=== PATIENT | male | born 1940 | race Caucasian/White ===

== ENCOUNTER 2019-02-06 16:34 | Emergency (ER) | payer MEDICARE, OTHER ==
--- NOTE | 2019-02-06 16:56 | ED ---
Psychiatric Complaint - HPI Summary HPI Summary: This patient is a 78 year old male accompanied by his presenting to [facility] from [facility] with a psychosocial complaint. His states he was upset, agitated, and combative with halfway staff and threw water at the director's face at the halfway and they could not get his agitation under control. Yesterday he had taken the hand of another resident and slammed it on the desk. She states he was suffering from paranoia. He states that was a regrettable fit of rage. His medication dosages have been changed frequently recently. The patient was given Seroquel at the halfway as a morning dose , which is a new dosage. His Buspar was recently increased. He takes Ativan. Medications reviewed. Allergies noted. Acetaminophen [Tylenol Extra Strength] 1,000 mg PO Q4HR PRN 01/27/19 [History Confirmed 01/27/19] Aspirin EC TAB* [Ecotrin EC Low Dose 81 MG*] 81 mg PO DAILY 01/27/19 [History Confirmed 01/27/19] Atorvastatin* [Lipitor*] 80 mg PO DAILY 01/27/19 [History Confirmed 01/27/19] Azelastine 0.1% Nasal (NF) [Astepro 0.1% Nasal (NF)] 1 spray BOTH NARES DAILY [History Confirmed 01/27/19] Cholecalciferol (Vitamin D3) [Vitamin D3] 1,000 unit PO DAILY 01/27/19 [History Confirmed 01/27/19] Citalopram TAB* [CeleXA TAB*] 40 mg PO DAILY 01/27/19 [History Confirmed ] Galantamine (NF) 8 mg PO BID 01/27/19 [History Confirmed 01/27/19] Ketotifen Fumarate [Allergy Eye Drops] 5 ml BOTH EYES DAILY 01/27/19 [History Confirmed 01/27/19] LORazepam TAB(*) [Ativan 0.5 MG TAB (*)] 0.25 mg PO Q4HR PRN 01/27/19 [History Confirmed 01/27/19] Memantine TAB* [Namenda TAB*] 5 mg PO BID 01/27/19 [History Confirmed 01/27/19] Metoprolol Succinate XL TAB* [Toprol XL TAB*] 25 mg PO DAILY 01/27/19 [History Confirmed 01/27/19] Polyethylene Glycol 3350* [Miralax*] 17 gm PO EVERY OTHER DAY 01/27/19 [History Confirmed 01/27/19] QUEtiapine TAB* [Seroquel 25 MG TAB*] 25 mg PO BEDTIME #30 tab 01/27/19 [Rx] Ramipril CAP* [Altace CAP*] 20 mg PO DAILY 01/27/19 [History Confirmed 01/27/19] Tamsulosin CAP* [Flomax CAP*] 0.8 mg PO DAILY 01/27/19 [History Confirmed ] amLODIPine TAB* [Norvasc 5 mg TAB*] 2.5 mg PO DAILY 01/27/19 [History Confirmed 01/27/19] amLODIPine TAB* [Norvasc 5 mg TAB*] 5 mg PO DAILY 01/27/19 [History Confirmed ] busPIRone TAB* [Buspar TAB*] 10 mg PO BID 01/27/19 [History Confirmed 01/27/19] - History Of Current Complaint Time Seen by Provider: 02/06/19 16:49 Hx Obtained From: Patient Onset/Duration: Lasting Days Timing: Intermittent Episode Lasting Character: Angry Associated Signs And Symptoms: Positive: Paranoid Behavior - Allergies/Home Medications Allergies/Adverse Reactions: Allergies Allergy/AdvReac Type Severity Reaction Status Date / Time morphine Allergy Mild Hallucinati Verified 01/28/19 10:06 ons SEASONAL ALLERGIES Allergy Eyes Uncoded 02/22/15 07:53 Itchy/Swollen/Red/Watery PMH/Surg Hx/FS Hx/Imm Hx Cardiovascular History: Reports: Hx Coronary Artery Disease - ON MED, Hx Hypertension - medication controlled Denies: Hx Pacemaker/ICD Comment Only: Other Cardiovascular Problems/Disorders - STENT IMPLANTED 1997 Respiratory History: Reports: Other Respiratory Problems/Disorders - PNEUMONIA ~ 06/09/14 Musculoskeletal History: Reports: Hx Arthritis - MILD-SHOULDERS/LOWER BACK Sensory History: Reports: Hx Cataracts, Hx Contacts or Glasses - GLASSES Denies: Hx Hearing Aid Opthamlomology History: Reports: Hx Cataracts, Hx Contacts or Glasses - GLASSES Psychiatric History: Denies: Hx Panic Disorder - Surgical History Surgery Procedure, Year, and Place: CARDIAC STENT. 05/10 INGUINAL HERNIA REPAIR. 05/11 MEDIAL MENISCUS REPAIR [facility]. 11/16 [facility] SURGERY [facility]. LT FEMORAL ENDARTORECTOMY Hx Anesthesia Reactions: No Infectious Disease History: Denies: Traveled Outside the [place] in Last 30 Days - Family History Known Family History: Positive: Non-Contributory - Social History Alcohol Use: None Alcohol Amount: 2-3 DRINKS DAILY Hx Substance Use: No Substance Use Type: Reports: None Hx Tobacco Use: No Smoking Status (MU): Never Smoked Tobacco Amount Used/How Often: 1/2 PPD Length of Time of Smoking/Using Tobacco: 15 YRS Have You Smoked in the Last Year: No Review of Systems Negative: Fever Positive: Other - Episodes of rage, paranoia All Other Systems Reviewed And Are Negative: Yes Physical Exam - Summary Physical Exam Summary: Constitutional: Well-developed, Well-nourished, Alert. (-) Distressed Skin: Warm, Dry HENT: Normocephalic; Atraumatic Eyes: Conjunctiva normal Neck: Musculoskeletal ROM normal neck. (-) JVD, (-) Stridor, (-) Tracheal deviation Cardio: Rhythm regular, rate normal, Heart sounds normal; Intact distal pulses; The pedal pulses are 2+ and symmetric. Radial pulses are 2+ and symmetric. (-) Murmur Pulmonary/Chest wall: Effort normal. (-) Respiratory distress, (-) Wheezes, (-) Rales Abd: Soft, (-) tenderness, (-) Distension, (-) Guarding, (-) Rebound Musculoskeletal: (-) Edema Lymph: (-) Cervical adenopathy Neuro: Rambling speech, incomprehensible. Psych: Mood and affect Normal Triage Information Reviewed: Yes Vital Signs Reviewed: Yes Course/Dx - Course Course Of Treatment: Patient is here with periodic agitation. Patient has end- stage dementia and lives at memory care unit at [facility]. Patient was seen here 10 days ago for similar episode where he was started on Seroquel. Patient's Seroquel was increased 2 days ago to 25 mg twice a day. Per patient 's at bedside, yesterday at lunch patient took his Seroquel and was very sleepy. It is unsure whether patient is taking his medications. Today, patient was agitated but was calm upon arrival here. Patient did not need any lab tests here. Patient's primary care doctor Dr. Izaguirre was called and made aware of the circumstances. He recommended continuing the 25 mg of Seroquel twice a day as recently started this. Dr. Howe will call [facility] early this week to see if the meds are working. Patient and were comfortable with this plan. [facility] [place] received report about this and was also comfortable accepting the patient back. - Differential Dx/Clinical Impression Provider Diagnosis: Agitation, Dementia - Physician Notifications Discussed Care Of Patient With: Blayne Izaguirre - Primary Care Provider Time Discussed With Above Provider: 17:17 - Will see if added morning dose of Seroquel is working and will contact the halfway to see if they should further increase the dose, with the goal of behaving well in the halfway. Discharge ED - Sign-Out/Discharge Documenting (check all that apply): Patient Departure - Discharge Patient Received Moderate/Deep Sedation with Procedure: No - Discharge Plan Condition: Stable Disposition: HOME Patient Education Materials: Dementia (ED) Referrals: Blayne Izaguirre MD [Primary Care Provider] - Additional Instructions: Your primary care provider Dr. Izaguirre will communicate with the halfway the best dosages of Seroquel for you. Return to ED with any new or worsening symptoms. - Billing Disposition and Condition Condition: STABLE Disposition: Home - Attestation Statements Document Initiated by Cathie: Yes Documenting Cathie: Kameron Leal Provider For Whom Cathie is Documenting (Include Credential): Gerhard Isaac MD Scribe Attestation: Kameron Walsh, scribed for Gerhard Isaac MD on 02/06/19 at 1827. Scribe Documentation Reviewed: Yes Provider Attestation: The documentation as recorded by the Kameron west accurately reflects the service I personally performed and the decisions made by , Gerhard Isaac MD Status of Scribe Document: Viewed
[2019-02-06 18:08] VITALS: BP 143/68
== END 2019-02-06 18:07 | disposition home or self-care (01) ==
LOC: ED 16:34
DX: F03.90 Unspecified dementia, unspecified severity, without behavioral disturbance, psychotic disturbance, mood disturbance, and anxiety (principal); R45.1 Restlessness and agitation; I25.10 Atherosclerotic heart disease of native coronary artery without angina pectoris; I10 Essential (primary) hypertension; Z87.891 Personal history of nicotine dependence; Z79.82 Long term (current) use of aspirin; Z79.899 Other long term (current) drug therapy; Z88.5 Allergy status to narcotic agent
CPT/HCPCS: 99282

== ENCOUNTER 2019-02-15 23:28 | Emergency (ER) | payer MEDICARE, OTHER ==
--- NOTE | 2019-02-16 00:17 | ED ---
Adult Trauma - HPI Summary HPI Summary: Patient from residential complains of unwitnessed fall, found on the ground after unknown period of time with contusion to posterior left side head, bruise left arm. Unknown LOC. Per EMS increased number of falls past couple days. Family states patient Seroquel dose has recently been increased. Patient has history of Alzheimer's and agitation and aggression, cannot provide history of present illness. No anti-coag. Medical history is Alzheimer's, HTN, CAD. - History of Current Complaint Chief Complaint: EDHeadInjury Stated Complaint: FALL/AMS PER EMS Time Seen by Provider: 02/16/19 00:05 Hx Obtained From: Family/Assessment Specialist, EMS Hx From Patient Unobtainable Due To: Dementia Mechanism of Injury: Fall Current Severity: None Pain Intensity: 0 Pain Scale Used: 0-10 Numeric Location: Head, Extremities Associated Signs & Symptoms: Positive: Negative - Allergy/Home Medications Allergies/Adverse Reactions: Allergies Allergy/AdvReac Type Severity Reaction Status Date / Time morphine Allergy Mild Hallucinati Verified 02/16/19 00:10 ons SEASONAL ALLERGIES Allergy Eyes Uncoded 02/22/15 07:53 Itchy/Swollen/Red/Watery Home Medications: Home Medications QUEtiapine TAB* [Seroquel 25 MG TAB*] 25 mg PO BID 02/16/19 [History Confirmed 02/16/19] PMH/Surg Hx/FS Hx/Imm Hx Endocrine/Hematology History: Denies: Hx Anticoagulant Therapy Cardiovascular History: Reports: Hx Coronary Artery Disease - ON MED, Hx Hypertension - medication controlled Denies: Hx Pacemaker/ICD Comment Only: Other Cardiovascular Problems/Disorders - STENT IMPLANTED 1997 Respiratory History: Reports: Other Respiratory Problems/Disorders - PNEUMONIA ~ 06/09/14 Musculoskeletal History: Reports: Hx Arthritis - MILD-SHOULDERS/LOWER BACK Sensory History: Reports: Hx Cataracts, Hx Contacts or Glasses - GLASSES Denies: Hx Hearing Aid Opthamlomology History: Reports: Hx Cataracts, Hx Contacts or Glasses - GLASSES Psychiatric History: Denies: Hx Panic Disorder - Surgical History Surgery Procedure, Year, and Place: CARDIAC STENT. 05/10 INGUINAL HERNIA REPAIR. 05/11 MEDIAL MENISCUS REPAIR [facility]. 11/16 [facility] SURGERY [facility]. LT FEMORAL ENDARTORECTOMY Hx Anesthesia Reactions: No Infectious Disease History: No Infectious Disease History: Denies: Traveled Outside the [place] in Last 30 Days - Family History Known Family History: Positive: Non-Contributory - Social History Alcohol Use: None Alcohol Amount: 2-3 DRINKS DAILY Hx Substance Use: No Substance Use Type: Reports: None Hx Tobacco Use: No Smoking Status (MU): Never Smoked Tobacco Amount Used/How Often: 1/2 PPD Length of Time of Smoking/Using Tobacco: 15 YRS Have You Smoked in the Last Year: No Review of Systems Constitutional: Negative Eyes: Negative ENT: Negative Cardiovascular: Negative Respiratory: Negative Gastrointestinal: Negative Genitourinary: Negative Musculoskeletal: Negative Skin: Other Neurological: Negative Psychological: Normal All Other Systems Reviewed And Are Negative: Yes Physical Exam - Summary Physical Exam Summary: Patient unable to perform neuro exam due to dementia and agitation. Patient moving all 4 extremities freely without indication of pain. Full range of motion of jaw and neck. No pain with palpation of head, face, neck, back, chest wall, abdomen. No oral trauma noted. Small hematoma to left posterior head with no evidence of wound. No other ecchymosis, erythema, deformity, swelling noted on physical exam. Triage Information Reviewed: Yes Vital Signs On Initial Exam: Initial Vitals Temp Pulse Resp BP Pulse Ox 97.8 F 76 18 124/66 100 02/15/19 23:56 02/15/19 23:56 02/15/19 23:56 02/15/19 23:56 02/15/19 23:56 Vital Signs Reviewed: Yes Appearance: Positive: Well-Appearing Skin: Positive: Warm Head/Face: Positive: Normal Head/Face Inspection Eyes: Positive: Normal ENT: Positive: Normal ENT inspection Dental: Negative: Dental Fracture @, Bleeding Neck: Positive: Supple Respiratory/Lung Sounds: Positive: Clear to Auscultation Cardiovascular: Positive: Normal Abdomen Description: Positive: Nontender Musculoskeletal: Positive: Normal Psychiatric: Positive: Patient Uncooperative for Exam AVPU Assessment: Alert - [place]aye Coma Scale Best Eye Response: 4 - Spontaneous Diagnostics - Vital Signs Vital Signs Temp Pulse Resp BP Pulse Ox 02/15/19 23:56 97.8 F 76 18 124/66 100 - Laboratory Result Diagrams: 02/16/19 00:27 02/16/19 00:27 Lab Statement: Any lab studies that have been ordered have been reviewed, and results considered in the medical decision making process. Adult Trauma Course/Dx - Course Course Of Treatment: Patient from residential complains of unwitnessed fall, found on the ground after unknown period of time with contusion to posterior left side head, bruise left arm. Unknown LOC. Per EMS increased number of falls past couple days. Family states patient Seroquel dose has recently been increased. Patient has history of Alzheimer's and agitation and aggression, cannot provide history of present illness. No anti-coag. Medical history is Alzheimer's, HTN, CAD. Patient required sedation in order to facilitate evaluation. B52 after initial Versed 5 mg IM. Vital signs within normal limits. WBC 11.2. BUN 30. BUN/creatinine ratio 37.4. Total CK 241. EKG sinus rhythm, normal [place], similar to prior. CT brain negative - Diagnoses Provider Diagnoses: Fall, Hematoma, Agitation Discharge ED - Sign-Out/Discharge Documenting (check all that apply): Sign-Out Patient Signing out patient TO: Lily Tao - Discharge Plan Condition: Stable Disposition: [facility] Referrals: Blayne Izaguirre MD [Primary Care Provider] - Additional Instructions: Consider decreasing Seroquel dose due to increasing falls recently. Follow-up with primary care. - Billing Disposition and Condition Condition: STABLE Disposition: [facility]
[2019-02-16 00:32] LABS: ABS Basophils 0.1 10^3/ul (0-0.2); ABS Eosinophils 0.2 10^3/ul (0-0.6); ABS Lymphocytes 1.1 10^3/ul (1.0-4.8); ABS Monocytes 0.7 10^3/ul (0-0.8); ABS Neutrophils 9.1 10^3/ul (1.5-7.7); Eosinophil % 1.8 %; Hematocrit 38 % (42-52); Mean Corpuscular HGB Conc 34 g/dL (31-36); Mean Corpuscular Hemoglobin 31 pg (27-31); Mean Corpuscular Volume 90 fL (80-94); Mean Platelet Volume 8.6 fL (7.4-10.4); Platelet Count 252 10^3/uL (150-450); Red Blood Count 4.19 10^6 /uL (4.18-5.48); Red Cell Distribution Width 14 % (10-15); White Blood Count 11.2 10^3/uL (3.5-10.8)
[2019-02-16] MEDS ORDERED: LORazepam INJ* 2 MG/ML 1 ML VIAL IM ONE (00:35)
[2019-02-16] MEDS ORDERED: diPHENhydraMINE IV* 50 MG/ML 1 ml VIAL (BENADRYL) IM ONE (00:35)
[2019-02-16] MEDS ORDERED: Lorazepam PYXIS KEY ONE (00:39)
[2019-02-16 00:49] LABS: Albumin 4.2 g/dL (3.2-5.2); Albumin/Globulin Ratio 2.1 (1-3); BUN/Creatinine Ratio 37.4 (8-20); C Reactive Protein 1.03 mg/L (<8.01); Calcium 9.2 mg/dL (8.6-10.3); EGFR African American 80.7 (>60); EGFR Non-African American 66.7 (>60); Potassium 4.1 mmol/L (3.5-5.0); Total Bilirubin 0.9 mg/dL (0.2-1.0); Total Protein 6.2 g/dL (6.4-8.9)
[2019-02-16] MEDS ORDERED: Haloperidol INJ IV/IM* 5 MG/ML AMP IM ONE (01:28)
[2019-02-16 04:45] VITALS: BP 140/72
[2019-02-17] MEDS ORDERED: Haloperidol INJ IV/IM* 5 MG/ML AMP IV SLOW PU ONE (02:56)
== END 2019-02-16 05:17 ==
LOC: ED 23:28
DX: S00.93XA Contusion of unspecified part of head, initial encounter (principal); I10 Essential (primary) hypertension; I25.10 Atherosclerotic heart disease of native coronary artery without angina pectoris; G30.9 Alzheimer's disease, unspecified; W19.XXXA Unspecified fall, initial encounter; Y92.9 Unspecified place or not applicable; R45.1 Restlessness and agitation; Z79.899 Other long term (current) drug therapy
CPT/HCPCS: 36415; 70450; 80053; 82550; 84484; 85025; 86140; 87086; 93005; 96372; 99284; J1200; J1630; J2060

== ENCOUNTER 2019-02-16 10:43 | Inpatient (IN) | payer MEDICARE, OTHER ==
--- NOTE | 2019-02-16 11:18 | ED ---
Altered Mental Status - HPI Summary HPI Summary: LEVEL 5 CAVEAT - AMS This patient is a 78 year old M presenting to [facility] by EMS with a chief complaint of AMS since this morning. Per EMS, pt was seen in ED last night after hitting his head. Pt received 5 mg Haldol, 50 mg BENDRYL, and 2 mg Ativan. He was discharged and this morning the custodial reported he was acting psychotic and sent him to the ED. Pt has a PMHx of Alzheimers and agitation. Medications reviewed. Allergies noted - History Of Current Complaint Chief Complaint: EDAltMentalStatus Stated Complaint: ALTERED MENTAL STATUS PER EMS Time Seen by Provider: 02/16/19 10:46 Hx Obtained From: EMS Hx From Patient Unobtainable Due To: Altered Mental Status Onset/Duration: Still Present Timing: Constant Character: Agitation Aggravating Factor(s): Other - Medications Alleviating Factor(s): Unknown - Allergies/Home Medications Allergies/Adverse Reactions: Allergies Allergy/AdvReac Type Severity Reaction Status Date / Time morphine Allergy Mild Hallucinati Verified 02/16/19 00:10 ons SEASONAL ALLERGIES Allergy Eyes Uncoded 02/22/15 07:53 Itchy/Swollen/Red/Watery Home Medications: Home Medications QUEtiapine TAB* [Seroquel 25 MG TAB*] 50 mg PO BID 02/16/19 [History Confirmed 02/16/19] PMH/Surg Hx/FS Hx/Imm Hx Previously Healthy: No - LEVEL 5 CAVEAT - AMS Endocrine/Hematology History: Denies: Hx Anticoagulant Therapy Cardiovascular History: Reports: Hx Coronary Artery Disease - ON MED, Hx Hypertension - medication controlled Denies: Hx Pacemaker/ICD Comment Only: Other Cardiovascular Problems/Disorders - STENT IMPLANTED 1997 Respiratory History: Reports: Other Respiratory Problems/Disorders - PNEUMONIA ~ 06/09/14 Musculoskeletal History: Reports: Hx Arthritis - MILD-SHOULDERS/LOWER BACK Sensory History: Reports: Hx Cataracts, Hx Contacts or Glasses - GLASSES Denies: Hx Hearing Aid Opthamlomology History: Reports: Hx Cataracts, Hx Contacts or Glasses - GLASSES Psychiatric History: Denies: Hx Panic Disorder - Surgical History Surgery Procedure, Year, and Place: CARDIAC STENT. 05/10 INGUINAL HERNIA REPAIR. 05/11 MEDIAL MENISCUS REPAIR [facility]. 11/16 [facility] SURG[facility] [place]. LT FEMORAL ENDARTORECTOMY Hx Anesthesia Reactions: No Infectious Disease History: Denies: Traveled Outside the [place] in Last 30 Days - Family History Known Family History: Positive: Unknown - LEVEL 5 CAVEAT - AMS - Social History [facility]: [facility] Alcohol Use: None Alcohol Amount: 2-3 DRINKS DAILY Hx Substance Use: No Substance Use Type: Reports: None Hx Tobacco Use: No Smoking Status (MU): Never Smoked Tobacco Amount Used/How Often: 1/2 PPD Length of Time of Smoking/Using Tobacco: 15 YRS Have You Smoked in the Last Year: No - Additional Comments History Additional Comments: LEVEL 5 CAVEAT - AMS Review of Systems Positive: Other - AMS All Other Systems Reviewed And Are Negative: No - Comments Additional Review of Systems Comments: LEVEL 5 CAVEAT - AMS Physical Exam - Summary Physical Exam Summary: LEVEL 5 CAVEAT - AMS Constitutional: Well-developed, Well-nourished, (-) Distressed Skin: Warm, Dry HENT: Normocephalic; Atraumatic Eyes: Conjunctiva normal Neck: Musculoskeletal ROM normal neck. (-) JVD, (-) Stridor, (-) Tracheal deviation Cardio: Rhythm regular, rate normal, Heart sounds normal; Intact distal pulses; The pedal pulses are 2+ and symmetric. Radial pulses are 2+ and symmetric. (-) Murmur Pulmonary/Chest wall: Effort normal. (-) Respiratory distress, (-) Wheezes, (-) Rales Abd: Soft, (-) tenderness, (-) Distension, (-) Guarding, (-) Rebound Musculoskeletal: (-) Edema Lymph: (-) Cervical adenopathy Neuro: Eyes closed, not speaking but does move all 4 extremities when asked. Psych: Mood and affect Normal Triage Information Reviewed: Yes Vital Signs On Initial Exam: Initial Vital Signs Temp 99.8 F 02/16/19 11:09 Pulse 63 02/16/19 11:09 Resp 14 02/16/19 11:09 BP 110/56 02/16/19 11:09 Pulse Ox 94 02/16/19 11:09 Vital Signs Reviewed: Yes - [place] Coma Scale Best Eye Response: 2 - To Pain Best Motor Response: 6 - Obeys Commands Best Verbal Response: 1 - None Coma Scale Total: 9 Diagnostics - Laboratory Result Diagrams: 02/16/19 11:34 02/16/19 11:34 Lab Statement: Any lab studies that have been ordered have been reviewed, and results considered in the medical decision making process. - CT Brain CT CT Interpretation Completed By: Radiologist Summary of CT Findings: Brain CT reveals, per radiologist, IMPRESSION: NO ACUTE INTRACRANIAL PATHOLOGY. DIFFUSE INVOLUTIONAL CHANGE WITH CHRONIC SMALL VESSEL ISCHEMIC CHANGES. ED physician has reviewed this radiology report. - EKG 11:10 Cardiac Rate: NL - 62 bpm EKG Rhythm: Sinus Rhythm Summary of EKG Findings: An EKG at 11:10 reveals normal sinus rhythm 62 bpm, no STEMI. Re-Evaluation - Re-Evaluation First Eval Re-Evaluation Time: 12:10 Comment: Aware of troponin 0.07, recheck on pt. Altered Mental Statu Course/Dx - Course Course Of Treatment: Patient is here with altered mental status. Patient received 50 mg of Benadryl, 2 mg of Ativan, 5 mg of Haldol last night in the emergency department. Patient received Versed in the custodial as well. EMS. Upon arrival, patient was able to follow commands but was not answering questions or opening his eyes. Patient did metabolize all here with improvement in his mental status. Patient had negative repeat head CT for delayed intercurrent or hemorrhage. Patient did have a troponin of 0.07. Patient had serial troponins last night which showed increasing troponin. It is unsure what has a troponin leak as he is a normal EKG here. Patient was admitted to the hospital for further workup and monitoring. - Diagnoses Provider Diagnoses: Elevated troponin, Altered mental status, Dementia - Provider Notifications Discussed Care Of Patient With: Viky Power Time Discussed With Above Provider: 12:49 Instructed by Provider To: Other - Discussed case with Dr. Power, who accepts pt for admission. Discharge ED - Sign-Out/Discharge Documenting (check all that apply): Patient Departure - Admit Patient Received Moderate/Deep Sedation with Procedure: No - Discharge Plan Condition: Stable Disposition: ADMITTED TO [facility] Referrals: Blayne Izaguirre MD [Primary Care Provider] - - Billing Disposition and Condition Condition: STABLE Disposition: Admitted to [facility] - Attestation Statements Document Initiated by Scribe: Yes Documenting Scribe: Malina Gibson Provider For Whom Scribe is Documenting (Include Credential): Gerhard Isaac MD Scribe Attestation: Malina Walsh, scribed for Gerhard Isaac MD on 02/16/19 at 1301. Scribe Documentation Reviewed: Yes Provider Attestation: The documentation as recorded by the scribe, Malina Gibson accurately reflects the service I personally performed and the decisions made by me, Gerhard Isaac MD Status of Scribe Document: Viewed
[2019-02-16 11:44] LABS: ABS Basophils 0.1 10^3/ul (0-0.2); ABS Eosinophils 0.3 10^3/ul (0-0.6); ABS Monocytes 0.9 10^3/ul (0-0.8); ABS Neutrophils 8.2 10^3/ul (1.5-7.7); Eosinophil % 2.8 %; Hematocrit 38 % (42-52); Hemoglobin 13.1 g/dL (14.0-18.0); Lymphocyte % 9.3 %; Mean Corpuscular HGB Conc 35 g/dL (31-36); Mean Corpuscular Hemoglobin 31 pg (27-31); Mean Corpuscular Volume 89 fL (80-94); Mean Platelet Volume 8.5 fL (7.4-10.4); Platelet Count 254 10^3/uL (150-450); Red Blood Count 4.22 10^6 /uL (4.18-5.48); Red Cell Distribution Width 14 % (10-15); White Blood Count 10.5 10^3/uL (3.5-10.8)
[2019-02-16 11:57] LABS: INR 1.05 (0.82-1.09)
[2019-02-16 12:01] LABS: Albumin 3.8 g/dL (3.2-5.2); Albumin/Globulin Ratio 1.9 (1-3); BUN/Creatinine Ratio 39.3 (8-20); Calcium 8.7 mg/dL (8.6-10.3); EGFR African American 106.7 (>60); EGFR Non-African American 88.1 (>60); Potassium 3.9 mmol/L (3.5-5.0); Total Bilirubin 1.1 mg/dL (0.2-1.0); Total Protein 5.8 g/dL (6.4-8.9)
[2019-02-16 12:09] LABS: Troponin I 0.07 ng/mL (<0.04)
[2019-02-16] MEDS ORDERED: NS 0.9% 1000 ML** 1,000 ML IV SCH (14:15)
[2019-02-16 14:56] LABS: Troponin I 0.06 ng/mL (<0.04)
[2019-02-16 14:58] LABS: Urine Bacteria Absent (Absent); Urine Red Blood Cell 3+(>10/hpf) (Absent); Urine White Blood Cell 1+(6-10/hpf) (Absent)
[2019-02-16 15:02] LABS: Urine Appearance Cloudy; Urine Color Red; Urine Specific Gravity 1.021 (1.010-1.030)
--- NOTE | 2019-02-16 15:55 | HP ---
CC: Dr. Izaguirre, [place] * HISTORY AND PHYSICAL: DATE OF ADMISSION: 02/16/19 PROVIDER: Heaven Bird NP PRIMARY CARE PROVIDER: Dr. Izaguirre. ATTENDING PHYSICIAN WHILE IN THE HOSPITAL: Dr. Viky Power * (dictated by Heaven Bird NP). CHIEF COMPLAINT: Altered mental status. HISTORY OF PRESENT ILLNESS: Mr. Sainz is a 78-year-old male with a past medical history significant for Alzheimer's, hypertension, hyperlipidemia, anxiety, depression, aggressive behavior, history of a cardiac stent in 1997, who currently is residing at [facility]. Past medical history is obtained from his old records and his , Zan. His , Zan, reports that over the past 2 days the patient has had 2 falls at [facility]. She does report that the patient fell 2 days ago, at that time complained of some shoulder pain after a fall when he was found on the floor in his bedroom. He was evaluated by EMS and was not brought to the emergency room. The does report that he fell again yesterday in another resident's room. He was agitated and being belligerent. Due to his aggressive behavior, the patient was given Versed by EMS to get him on the stretcher and transport him to the emergency room. The patient's reports that when he arrived at the emergency room he remained aggressive, he was trying to bend the side rails on the stretcher, was squeezing her hand. The patient did receive more medication in the emergency room last evening. At approximately 1 a.m., he received 50 of Benadryl IM, 2 mg of Ativan IM and at 1:30 in the morning received Haldol 5 mg IM due to his agitation. The patient was able to settle down after that and rest, and at approximately 5:30 the patient was discharged back to [place]. The patient arrived back to [place] and later there was a concern that the patient would not arouse and was not acting appropriate. He was shaking, hallucinating and not responding normally, so he was transported back to the emergency room from [place] and he arrived here at approximately 12:03. While in the emergency room, the patient had some routine lab work drawn. He had a CT of the brain that showed no acute intracranial pathology, hemorrhage, or stroke. Due to his altered mental status and lethargy, Hospital Medicine was asked to see the patient for admission. PAST MEDICAL HISTORY: Obtained from his . He has a history of Alzheimer's , coronary artery disease, anxiety, BPH, depression, hypertension, hyperlipidemia. PAST SURGICAL HISTORY: Unknown. HOME MEDICATIONS: Include: 1. Acetaminophen 1000 mg p.o. q.4 hours as needed for pain. 2. Lorazepam 0.5 mg p.o. q.8 hours p.r.n. anxiety. 3. Seroquel 75 mg twice daily. 4. BuSpar 10 mg p.o. b.i.d. 5. Galantamine 8 mg p.o. b.i.d. 6. Tamsulosin 0.8 mg p.o. daily. 7. Vitamin D 1000 units p.o. daily. 8. Ramipril 20 mg p.o. daily. 9. MiraLAX 17 g p.o. every other day. 10. Metoprolol 25 mg p.o. daily. 11. Atorvastatin 80 mg p.o. daily. 12. Celexa 40 mg p.o. daily. 13. Azelastine 0.1% nasal, 1 spray to both nares daily. 14. Aspirin 81 mg p.o. daily. 15. Amlodipine 7.5 mg p.o. daily. 16. Allergy eye drops 1 drop to both eyes daily. ALLERGIES: To MORPHINE. FAMILY HISTORY: Mother with Alzheimer's. No reported history of coronary artery disease, diabetes, or cancer within the family. SOCIAL HISTORY: The patient used to smoke, but quit smoking approximately 40 years ago. No alcohol or illicit drug use. He is . He is currently residing at [facility]. He walks independently. Surrogate decision maker in the event that he is unable to make his own decision is his , Zan. She does report that the patient is a DNR/DNI. REVIEW OF SYSTEMS: Unable to obtain a review of systems due to the patient's level of consciousness. PHYSICAL EXAMINATION GENERAL: The patient is lethargic with minimal eye opening. He does withdraw to pain, resting on the stretcher in the emergency room. He is in no respiratory distress. HEENT: Eyes: Pupils are 4 mm and reactive to light. Mucous membranes are dry. NECK: Supple. LUNGS: Clear to auscultation bilaterally. CARDIAC: S1, S2. Regular rate and rhythm. No murmurs, rubs, or gallops. ABDOMEN: Firm to the lower abdomen. He does grimace with palpation. MUSCULOSKELETAL: He is able to move all of his extremities. Pedal pulses are + 2 bilaterally. He has got no clubbing or cyanosis. NEUROLOGIC: The patient is lethargic, unable to answer any questions. SKIN: Intact. DIAGNOSTIC STUDIES/LAB DATA: WBCs are 10.5, RBCs 4.22, hemoglobin 13.1, hematocrit is 38, platelet count 254,000. INR 1.05. Sodium 140, potassium 3.9 , chloride 109, carbon dioxide was 27, anion gap was 4, BUN was 33, creatinine 0.84, glucose was 125, calcium 8.7. Total bilirubin 1.10, ASTs were 27, ALTs were 19, alkaline phosphatase was 87. Troponin 0.07. Urine is currently pending. He had a CT of the brain, radiologist's impression: No acute intracranial pathology. Diffuse involutional change with chronic small vessel ischemic changes. He had an electrocardiogram, which showed sinus bradycardia at a rate of 58. No ST or T-wave changes. ASSESSMENT AND PLAN: Mr. Sainz is a 78-year-old male with a past medical history significant for Alzheimer's, hypertension, hyperlipidemia, anxiety and depression, who presented to the emergency room with altered mental status. He will be admitted under observation for: 1. Altered mental status. I suspect his altered mental status and decreased level of consciousness is related to receiving multiple medications at approximately 1 a.m. as well as Versed. He received Versed, Ativan, Benadryl, and Haldol. The patient currently does withdraw to pain. We will continue to monitor the patient on telemetry. The patient will need one-on-one supervision during this admission as he does have a history of severe agitation and aggressive behavior. We will hold his meds until his lethargy improves. 2. Hypertension. He will continue on amlodipine, ramipril, and metoprolol as previously prescribed. 3. Depression/anxiety. He should continue on Seroquel. We will resume that tomorrow morning as the patient is lethargic at this time. He can have p.r.n. Ativan when he is more arousable and continue his Celexa when his level of consciousness returns to baseline. 4. Hyperlipidemia. He should continue on his atorvastatin. 5. Benign prostatic hypertrophy. He should continue on Flomax. The patient did have urinary retention in the emergency room. He did have a bladder scan that showed 360. Straight cath was performed. He had 600 cc of bloody urine returned. A urine was sent and we will treat based on urinalysis report. 6. FEN: He can have a regular diet when his lethargy resolves. 7. Code status: He is a DNR/DNI. 8. DVT prophylaxis: I will place him on SCDs as the patient has had 2 falls in the past 2 days and risk for bleeding. TIME SPENT: Time spent on this admission was 60 minutes, greater than half that time was spent at the bedside reviewing events leading thus far to his hospitalization, performing physical exam, and reviewing my plan of care. I have discussed this with my attending, Dr. Viky Power; she is in agreement with my plan. HEAVEN BIRD, COURTNEY [id number]/CPS #: [id number] MONICA
[2019-02-16] MEDS: GALANTAMINE 4 MG PO SCH (20:32)
[2019-02-16] MEDS: Atorvastatin* 80 MG TAB PO SCH (20:37)
[2019-02-16] MEDS: busPIRone TAB* 10 MG PO SCH (20:37)
[2019-02-17] MEDS ORDERED: Haloperidol INJ IV/IM* 5 MG/ML AMP IV SLOW PU ONE (04:58)
[2019-02-17] MEDS: busPIRone TAB* 10 MG PO SCH ×2 (08:07→20:09)
[2019-02-17] MEDS: Tamsulosin CAP* 0.4 MG PO SCH (08:07)
[2019-02-17] MEDS: Metoprolol Succinate XL TAB* 25 MG PO SCH (08:07)
[2019-02-17] MEDS: Aspirin EC TAB* 81 MG TAB.EC PO SCH (08:07)
[2019-02-17] MEDS: amLODIPine TAB* 5 MG PO SCH (08:08)
[2019-02-17] MEDS: Citalopram TAB* 40 MG PO SCH (08:08)
[2019-02-17] MEDS: GALANTAMINE 4 MG PO SCH ×2 (08:40→20:02)
[2019-02-17] MEDS ORDERED: QUEtiapine TAB* 25 MG PO SCH (09:00)
--- NOTE | 2019-02-17 13:59 | PN ---
Subjective Date of Service: 02/17/19 Interval History: Mr. Sainz is feeling okay this morning. He is not willing to converse with me much, but offers no complaints. He denies CP, SOB, N/V. He is not sure if he already had breakfast. Nursing reports intermittent agitation. Patient has been smearing stool on himself and around his room. Family History: Unchanged from Admission Social History: Unchanged from Admission Past Medical History: Unchanged from Admission Objective Active Medications: Amlodipine Besylate (Norvasc Tab*) 7.5 mg PO DAILY [facility] Aspirin (Aspirin Ec Tab*) 81 mg PO DAILY [facility] Atorvastatin Calcium (Lipitor*) 80 mg PO 2100 [facility] Buspirone HCl (Buspar Tab*) 10 mg PO BID [facility] Citalopram Hydrobromide (Celexa Tab*) 40 mg PO DAILY [facility] Galantamine Hydrobromide (Galantamine (Nf)) 8 mg PO BID [facility]; Protocol Metoprolol Succinate (Toprol Xl Tab*) 25 mg PO DAILY [facility] Quetiapine Fumarate (Seroquel Tab*) 75 mg PO BID [facility] Tamsulosin HCl (Flomax Cap*) 0.8 mg PO DAILY [facility] Vital Signs - 8 hr 02/17/19 02/17/19 08:00 11:15 Temperature 97.2 F Pulse Rate 72 Respiratory 18 18 Rate Blood Pressure 136/38 (mmHg) O2 Sat by Pulse 95 Oximetry Oxygen Devices in Use Now: None Appearance: Elderly male laying in bed in NAD Eyes: No Scleral Icterus Ears/Nose/Mouth/Throat: Mucous Membranes Moist Neck: NL Appearance and Movements; NL JVP, Trachea Midline Respiratory: Symmetrical Chest Expansion and Respiratory Effort, Clear to Auscultation Cardiovascular: NL Sounds; No Murmurs; No JVD, RRR Abdominal: NL Sounds; No Tenderness; No Distention Extremities: No Edema Neurological: - - Oriented to self Lines/Tubes/Other Access: Clean, Dry and Intact Peripheral IV Nutrition: Taking PO's Result Diagrams: 02/16/19 11:34 02/16/19 11:34 Assess/Plan/Problems-Billing Assessment: Mr. Sainz is a 78 yo M with PMH of Alzheimer's, CAD, HTN, HLD, and BPH; who presented to the ED with AMS after receiving multiple sedating medications earlier in the day. - Patient Problems (1) Altered mental status Code(s): R41.82 - ALTERED MENTAL STATUS, UNSPECIFIED Comment: - 3 weeks of increasing agitation at home ([facility]); brought into ED after a fall and was given Versed, Benadryl, and Haldol and was subsequently sedation, now back to baseline agitation - No evidence of infection or other medical etiology - Follows with Dr. Vincent outpatient; spoke with who believes this may be passenger representative of Karthikeyan Body dementia and would like input from Psychiatry regarding medication recommendations - Appreciate Psych consult - Continue Seroquel for now (50mg BID), though this does not seem to be effective; dose was recently increased to 75mg BID then decreased back to 50mg BID d/t increased falls on higher dosing (2) Acute urinary retention Code(s): R33.8 - OTHER RETENTION OF URINE Comment: - Secondary to BPH - Would like to avoid [facility] as he will not tolerate having one in place - Continue toileting schedule and PVR, straight cath for PVR >300 - Start Proscar (3) Alzheimer's disease Code(s): G30.9 - ALZHEIMER'S DISEASE, UNSPECIFIED; F02.80 - DEMENTIA IN OTH DISEASES CLASSD ELSWHR W/O BEHAVRL DISTURB Comment: - Possible Lewy body dementia - Continue galantamine (4) CAD (coronary artery disease) Code(s): I25.10 - ATHSCL HEART DISEASE OF [place] CORONARY ARTERY W/O ANG PCTRS Comment: - No CP or EKG changes - Trop elevated up to 0.07, suspect d/t demand and not ACS - would not want to pursue any invasive measures - Continue metoprolol, aspirin, atorvastatin (5) Hypertension Code(s): I10 - ESSENTIAL (PRIMARY) HYPERTENSION Comment: - Normotensive, SBP 110-130s - Hold ramipril - Continue amlodipine, metoprolol (6) Anxiety and depression Code(s): F41.9 - ANXIETY DISORDER, UNSPECIFIED; F32.9 - MAJOR DEPRESSIVE DISORDER, SINGLE EPISODE, UNSPECIFIED Comment: - Continue Celexa (7) Hyperlipidemia Code(s): E78.5 - HYPERLIPIDEMIA, UNSPECIFIED Comment: - Continue atorvastatin (8) BPH (benign prostatic hyperplasia) Code(s): N40.0 - BENIGN PROSTATIC HYPERPLASIA WITHOUT LOWER URINRY TRACT SYMP Comment: - Continue tamsulosin; start finasteride as noted above (9) DVT prophylaxis Code(s): Z29.9 - ENCOUNTER FOR PROPHYLACTIC MEASURES, UNSPECIFIED Comment: - SCDs (10) DNR (do not resuscitate) Comment: Status and Disposition: Inpatient. Anticipate need for [facility] when medically stable. Attending: Gilberto Lopez
[2019-02-17] MEDS: Finasteride TAB* 5 MG PO SCH (15:25)
--- NOTE | 2019-02-17 18:08 | CONSULT ---
Palliative / Hospice Consult Ordering Provider: Kim Henley - PCP-Zina Referal Reason: Goals of care and aftercare/no bowel meds/no opioids - Subjective Code Status: DNR Advance Directives Location: No Advance Directives MOLST Part A Completed: Yes - on chart MOLST Part E Completed:: Yes - on chart - History or Present Illness History or Present Illness: 78yo male with moderately severe dementia resident of [facility] unit presents with altered mental status. PMH is significant for dementia x 6yrs, HTN , hyperlipidemia, anxiety , cardiac stent 1998 ad BPH. 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 Pt was living at home and became difficult to care for and was moved to [facility] and has been having issues of acting out. Studies brain CT-no acute findings, chronic small vessel ischemic changes, ekg-nsr, CXR-neg, Ekg #2 sinus hubert, H/H 13.1/38, BUN/ Cr 33/.84, egfr 88.1, alb 3.8 and inr 1.05. Pt has been to ER 01/27/19 for psyche eval, 02/06 for MHE and 02/15-02/16 for fall. On last ER visit pt was medicated with several medications and sent back to [place] where he was difficult to wake and was transferred to [facility] ER. Pt is currently admitted to regulate medications. All history is from family and medical record, pt is unable to contribute due to dementia. Lab Values: Laboratory Last Values WBC 10.5 10^3/uL (3.5-10.8) 02/16/19 11:34 RBC 4.22 10^6 /uL (4.18-5.48) 02/16/19 11:34 Hgb 13.1 g/dL (14.0-18.0) L 02/16/19 11:34 Hct 38 % (42-52) L 02/16/19 11:34 MCV 89 fL (80-94) 02/16/19 11:34 MCH 31 pg (27-31) 02/16/19 11:34 MCHC 35 g/dL (31-36) 02/16/19 11:34 RDW 14 % (10-15) 02/16/19 11:34 Plt Count 254 10^3/uL (150-450) 02/16/19 11:34 MPV 8.5 fL (7.4-10.4) 02/16/19 11:34 Neut % (Auto) 78.3 % 02/16/19 11:34 Lymph % (Auto) 9.3 % 02/16/19 11:34 Mariposa % (Auto) 8.7 % 02/16/19 11:34 Eos % (Auto) 2.8 % 02/16/19 11:34 Baso % (Auto) 0.9 % 02/16/19 11:34 Absolute Neuts (auto) 8.2 10^3/ul (1.5-7.7) H 02/16/19 11:34 Absolute Lymphs (auto) 1.0 10^3/ul (1.0-4.8) 02/16/19 11:34 Absolute Monos (auto) 0.9 10^3/ul (0-0.8) H 02/16/19 11:34 Absolute Eos (auto) 0.3 10^3/ul (0-0.6) 02/16/19 11:34 Absolute Basos (auto) 0.1 10^3/ul (0-0.2) 02/16/19 11:34 Absolute Nucleated RBC 0.0 10^3/ul 02/16/19 11:34 Nucleated RBC % 0.0 02/16/19 11:34 INR (Anticoag Therapy) 1.05 (0.82-1.09) 02/16/19 11:34 Sodium 140 mmol/L (135-145) 02/16/19 11:34 Potassium 3.9 mmol/L (3.5-5.0) 02/16/19 11:34 Chloride 109 mmol/L (101-111) 02/16/19 11:34 Carbon Dioxide 27 mmol/L (22-32) 02/16/19 11:34 Anion Gap 4 mmol/L (2-11) 02/16/19 11:34 BUN 33 mg/dL (6-24) H 02/16/19 11:34 Creatinine 0.84 mg/dL (0.67-1.17) 02/16/19 11:34 Est GFR ( Amer) 106.7 (>60) 02/16/19 11:34 Est GFR (Non-Af Amer) 88.1 (>60) 02/16/19 11:34 BUN/Creatinine Ratio 39.3 (8-20) H 02/16/19 11:34 Glucose 125 mg/dL (70-100) H 02/16/19 11:34 Calcium 8.7 mg/dL (8.6-10.3) 02/16/19 11:34 Total Bilirubin 1.10 mg/dL (0.2-1.0) H 02/16/19 11:34 AST 27 U/L (13-39) 02/16/19 11:34 ALT 19 U/L (7-52) 02/16/19 11:34 Alkaline Phosphatase 89 U/L (34-104) 02/16/19 11:34 Troponin I 0.06 ng/mL (<0.04) H* 02/16/19 14:21 Total Protein 5.8 g/dL (6.4-8.9) L 02/16/19 11:34 Albumin 3.8 g/dL (3.2-5.2) 02/16/19 11:34 Globulin 2.0 g/dL (2-4) 02/16/19 11:34 Albumin/Globulin Ratio 1.9 (1-3) 02/16/19 11:34 Urine Color Red A 02/16/19 14:06 Urine Appearance Cloudy 02/16/19 14:06 Urine pH TNP 02/16/19 14:06 Ur Specific Bend 1.021 (1.010-1.030) 02/16/19 14:06 Urine Protein TNP 02/16/19 14:06 Urine Ketones TNP 02/16/19 14:06 Urine Blood TNP 02/16/19 14:06 Urine Nitrate TNP 02/16/19 14:06 Urine Bilirubin TNP 02/16/19 14:06 Urine Urobilinogen TNP 02/16/19 14:06 Ur Leukocyte Esterase TNP 02/16/19 14:06 Urine WBC (Auto) 1+(6-10/hpf) (Absent) A 02/16/19 14:06 Urine RBC (Auto) 3+(>10/hpf) (Absent) A 02/16/19 14:06 Urine Bacteria Absent (Absent) 02/16/19 14:06 Urine Glucose TNP 02/16/19 14:06 Urine Ascorbic Acid TNP 02/16/19 14:06 - Objective Active Medications: Amlodipine Besylate (Norvasc Tab*) 7.5 mg PO DAILY [facility] Last Admin: 02/17/19 08:08 Dose: 7.5 mg Aspirin (Aspirin Ec Tab*) 81 mg PO DAILY [facility] Last Admin: 02/17/19 08:07 Dose: 81 mg Atorvastatin Calcium (Lipitor*) 80 mg PO 2100 [facility] Last Admin: 02/16/19 20:37 Dose: 80 mg Buspirone HCl (Buspar Tab*) 10 mg PO BID [facility] Last Admin: 02/17/19 08:07 Dose: 10 mg Citalopram Hydrobromide (Celexa Tab*) 40 mg PO DAILY [facility] Last Admin: 02/17/19 08:08 Dose: 40 mg Finasteride (Proscar Tab*) 5 mg PO DAILY [facility] Last Admin: 02/17/19 15:25 Dose: 5 mg Galantamine Hydrobromide (Galantamine (Nf)) 8 mg PO BID [facility]; Protocol Last Admin: 02/17/19 08:40 Dose: Not Given Metoprolol Succinate (Toprol Xl Tab*) 25 mg PO DAILY [facility] Last Admin: 02/17/19 08:07 Dose: 25 mg Quetiapine Fumarate (Seroquel Tab*) 50 mg PO BID [facility] Tamsulosin HCl (Flomax Cap*) 0.8 mg PO DAILY [facility] Last Admin: 02/17/19 08:07 Dose: 0.8 mg Vital Signs: Vital Signs: Temp Pulse Resp BP Pulse Ox 97.2 F 72 18 136/38 95 02/17/19 11:15 02/17/19 11:15 02/17/19 11:15 02/17/19 11:15 02/17/19 11:15 Patient Weight: Weight 65.062 kg Intake and Output: Intake & Output 02/15/19 02/16/19 02/17/19 02/18/19 06:59 06:59 06:59 06:59 Intake Total 0 120 Balance 0 120 Weight 65.062 kg Intake: Oral 0 120 Other: Estimated Void Small # Bowel Movements 1 1 Estimated Stool Amount Large Small # Voids 3 0 ADLs: Meal Record Start: 02/16/19 15: 31 Freq: DAILY@0900,1400,1800 Status: Active Protocol: Created 02/16/19 15:31 System (Rec: 02/16/19 15:31 System MED-C04) Document 02/17/19 09:00 [id number] (Rec: 02/17/19 10:24 [id number] MED-C09) Document 02/17/19 14:00 [id number] (Rec: 02/17/19 14:48 [id number] MED-C11) Intake and Output Start: 02/16/19 11: 12 Freq: Status: Active Protocol: Created 02/16/19 11:12 System (Rec: 02/16/19 11:12 System ED-C22) Intake and Output Start: 02/16/19 15: Freq: DAILY@0600,1400,2200 Status: Active Protocol: Created 02/16/19 15:31 System (Rec: 02/16/19 15:31 System MED-C04) Document 02/16/19 22:00 [id number] (Rec: 02/16/19 22:06 [id number] MED-C11) Document 02/17/19 04:38 [id number] (Rec: 02/17/19 04:39 [id number] MED-C09) Document 02/17/19 14:00 [id number] (Rec: 02/17/19 14:48 [id number] MED-C11) Eyes: No Scleral Icterus Ears/Nose/Mouth/Throat: Mucous Membranes Moist Neck: NL Appearance and Movements; NL JVP, Trachea Midline Cardiovascular: NL Sounds; No Murmurs; No JVD, RRR Abdominal: NL Sounds; No Tenderness; No Distention Extremities: No Edema Neurological: - - Oriented to self - Assessment Assessment: 78yo male with moderately severe dementia presents with AMS secondary to medications - Plan Consult Plan (MU): Palliative Plan: Long discussion with pt's and daughter. 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 He will be reevaluated by [facility] to see if can go back there. If not family is hoping to pursue [facility] and possible placement. Family says pt was able to walk to dining room with one assist but since all the medication changes he is needing more help. He often feels he has to void which causes him to fall or become insistent on moving. We did discuss hospice and a brochure was give. said her doesn't want his life prolonged and wants to . At this time I don't think his dementia qualifies him for hospice but if he ends up in placement at SNF they can ask for a referral to hospice. Support given. KPS 50%, PPS 50%. - Time On Unit Date of Evaluation: 02/17/19 Hospice Consult Time in: 14:00 Hospice Consult Time Out: 15:30 Hospice Consult Time Total: 90 > 50% of Time Spend In Counseling or Coordinating Care: Yes
[2019-02-17] MEDS: QUEtiapine TAB* 25 MG PO SCH (20:09)
[2019-02-17] MEDS: Atorvastatin* 80 MG TAB PO SCH (20:09)
[2019-02-18] MEDS: amLODIPine TAB* 5 MG PO SCH (08:48)
[2019-02-18] MEDS: Aspirin EC TAB* 81 MG TAB.EC PO SCH ×2 (08:48→09:01)
[2019-02-18] MEDS: Metoprolol Succinate XL TAB* 25 MG PO SCH (08:48)
[2019-02-18] MEDS: Finasteride TAB* 5 MG PO SCH (08:48)
[2019-02-18] MEDS: GALANTAMINE 4 MG PO SCH ×2 (08:50→20:19)
[2019-02-18] MEDS: Tamsulosin CAP* 0.4 MG PO SCH (08:50)
[2019-02-18] MEDS: busPIRone TAB* 10 MG PO SCH ×2 (08:50→21:07)
[2019-02-18] MEDS: QUEtiapine TAB* 25 MG PO SCH ×2 (08:50→21:07)
[2019-02-18] MEDS: Citalopram TAB* 40 MG PO SCH (08:50)
[2019-02-18] MEDS ORDERED: Ziprasidone IM INJ* 20 MG/ML VIAL IM PRN (10:53)
--- NOTE | 2019-02-18 12:55 | CONS ---
CONSULTATION REPORT: DATE OF CONSULT: 02/18/19 ATTENDING CLINICIAN: Kim Henley NP CONSULTING PHYSICIAN: Dr. Deonte Manzanares. REASON FOR CONSULT: Agitation. SUBJECTIVE HISTORY: Mr. Sainz is a 78-year-old white male with a history of progressive A lzheimer's dementia, who is currently residing at the [facility], brought in secondary to altered mental status. The patient is sleeping currently and appears to be somewhat sedated, so I r alcides on his Leonarda for the majority of this history. She states that she could no longer provide care in the home setting due to unpredictable agitated and dangerous behaviors such as running out i n to the street, in to traffic, and he was brought to live at [facility] in November of this year. There, he has been the memory care unit; however, his behaviors continued to be problematic as he is period ically aggressive and requires p.r.n. administration of Ativan. His primary care provider has placed him on trials of citalopram as well as quetiapine; however, quetiapine was recently reduced from 75 to 50 mg b.i.d. because they felt that this medicine might be causing falls. The family is wondering if [facility] is the appropriate placement at this time and there is some consideration for both [facility] led nursing facility disposition as well as palliative care. PAST PSYCHIATRIC HISTORY: Significant for Alzheimer's dementia, prior to this the patient never had psychiatric illness and had no history of suicidal ideations, although since developing his dementia diagnosis, he has at times expressed the desire to end his life. SUBSTANCE ABUSE HISTORY: Significant for social alcohol consumption. PAST MEDICAL HISTORY: Significant for hyperlipidemia, hypertension, Alzheimer's, history of cardiac stent in 1997, benign prostatic hypertrophy. MEDICATIONS: Home medications include: 1. Ativan as needed. 2. Seroquel 75 twice daily. 3. BuSpar 10 mg daily. 4. Galantamine 8 mg twice daily. 5. Flomax. 6. Vitamin D3. 7. Altace. 8. MiraLAX. 9. Toprol-XL. 10. Lipitor. 11. Celexa 40 mg daily. 12. Astepro inhale nasally. 13. Aspirin. 14. Norvasc. 15. Ketotifen allergy eye drops. ALLERGIES: Include MORPHINE. FAMILY HISTORY: The patient's father was an alcoholic. SOCIAL HISTORY: The patient is a retired high school guidance counselor, who worked in [place], [place]. He then moved with his family to the [facility]. He has 2 daughters, and is marri ed. He has never served in the and has no significant history of legal problems. MENTAL STATUS EXAM: The patient is an aging white male, dressed in patient gown, who is lying in bed asleep. He is psychomotor active with jerking movements in bed from time to time. The patient andree ins asleep and this does not attempt to arouse him. DIAGNOSES: [place] I: Moderate neurocognitive disorder, Alzheimer's type. [place] II: Deferred. ASSESSMENT: The patient is a 78-year-old white male with a history of rapidly progressing Al zheimer's disorder, who has developed agitation, which are only partially responsive thus far to logan lopram and quetiapine. I note that his quetiapine has been reduced due to concerns about falling. I t is this clinician's opinion that the patient's falls are much more likely to be secondary to use of benzodiazepines. We recommend judicious use of further Ativan if any at all. It appears that the p atient would benefit from placement in a custodial facility. Recommendations to primary team. Psychiatry recommends discontinuing the use of p.r.n. Ativan instead we will increase quetiapine fro m 50 to 75 mg twice daily. For breakthrough agitation, we can use 50 mg of quetiapine and for severe agitation, we can use 10 mg of intramuscular Geodon. Psychiatry will continue to follow the patient . Thank you for the consult. [id number]/[facility] #: [id number]
--- NOTE | 2019-02-18 13:36 | PN ---
Subjective Date of Service: 02/18/19 Interval History: Mr. Sainz is awake this morning, but unable to participate in any meaningful conversation. He does not think anything is bothering him. He is not sure if he ate breakfast. Denies CP or SOB. No concerns from nursing. Family History: Unchanged from Admission Social History: Unchanged from Admission Past Medical History: Unchanged from Admission Objective Active Medications: Amlodipine Besylate (Norvasc Tab*) 7.5 mg PO DAILY [facility] Aspirin (Aspirin Ec Tab*) 81 mg PO DAILY [facility] Atorvastatin Calcium (Lipitor*) 80 mg PO 2100 [facility] Buspirone HCl (Buspar Tab*) 10 mg PO BID [facility] Citalopram Hydrobromide (Celexa Tab*) 40 mg PO DAILY [facility] Finasteride (Proscar Tab*) 5 mg PO DAILY [facility] Galantamine Hydrobromide (Galantamine (Nf)) 8 mg PO BID [facility]; Protocol Metoprolol Succinate (Toprol Xl Tab*) 25 mg PO DAILY [facility] Quetiapine Fumarate (Seroquel Tab*) 50 mg PO Q6H PRN AGITATION Quetiapine Fumarate (Seroquel Tab*) 75 mg PO BID [facility] Tamsulosin HCl (Flomax Cap*) 0.8 mg PO DAILY [facility] Ziprasidone (Geodon Im Inj*) 10 mg IM BID PRN AGITATION - SEVERE Vital Signs - 8 hr 02/18/19 07:34 Temperature 98.6 F Pulse Rate 81 Blood Pressure 134/92 (mmHg) O2 Sat by Pulse 96 Oximetry Oxygen Devices in Use Now: None Appearance: Elderly male laying in bed in NAD Eyes: No Scleral Icterus Ears/Nose/Mouth/Throat: Mucous Membranes Moist Neck: NL Appearance and Movements; NL JVP, Trachea Midline Respiratory: Symmetrical Chest Expansion and Respiratory Effort, Clear to Auscultation Cardiovascular: NL Sounds; No Murmurs; No JVD, RRR Abdominal: NL Sounds; No Tenderness; No Distention Extremities: No Edema Neurological: - - Oriented to self Lines/Tubes/Other Access: Clean, Dry and Intact Peripheral IV Nutrition: Taking PO's Result Diagrams: 02/16/19 11:34 02/16/19 11:34 Assess/Plan/Problems-Billing Assessment: Mr. Sainz is a 78 yo M with PMH of Alzheimer's, CAD, HTN, HLD, and BPH; who presented to the ED with AMS after receiving multiple sedating medications earlier in the day. - Patient Problems (1) Altered mental status Code(s): R41.82 - ALTERED MENTAL STATUS, UNSPECIFIED Comment: - 3 weeks of increasing agitation at home ([place]); brought into ED after a fall and was given Versed, Benadryl, and Haldol and was subsequently sedation, now appears calm today - No evidence of infection or other medical etiology - Follows with Dr. Vincent outpatient; spoke with who believes this may be lead generation representative of Karthikeyan Body dementia and would like input from Psychiatry regarding medication recommendations - Appreciate Psych consult; recommends avoiding benzos as these were likely contributing to falls - Continue Vince Ontiveros (2) Acute urinary retention Code(s): R33.8 - OTHER RETENTION OF URINE Comment: - Secondary to BPH - Would like to avoid Freedman as he will not tolerate having one in place - Continue toileting schedule and PVR, straight cath for PVR >300 (3) Alzheimer's disease Code(s): G30.9 - ALZHEIMER'S DISEASE, UNSPECIFIED; F02.80 - DEMENTIA IN OTH DISEASES CLASSD ELSWHR W/O BEHAVRL DISTURB Comment: - Possible Lewy body dementia - Continue galantamine (4) CAD (coronary artery disease) Code(s): I25.10 - ATHSCL HEART DISEASE OF [place] CORONARY ARTERY W/O ANG PCTRS Comment: - No CP or EKG changes - Trop elevated up to 0.07, suspect d/t demand and not ACS - would not want to pursue any invasive measures - Continue metoprolol, aspirin, atorvastatin (5) Hypertension Code(s): I10 - ESSENTIAL (PRIMARY) HYPERTENSION Comment: - Normotensive, SBP 110-130s - Hold ramipril - Continue amlodipine, metoprolol (6) Anxiety and depression Code(s): F41.9 - ANXIETY DISORDER, UNSPECIFIED; F32.9 - MAJOR DEPRESSIVE DISORDER, SINGLE EPISODE, UNSPECIFIED Comment: - Continue Celexa (7) Hyperlipidemia Code(s): E78.5 - HYPERLIPIDEMIA, UNSPECIFIED Comment: - Continue atorvastatin (8) BPH (benign prostatic hyperplasia) Code(s): N40.0 - BENIGN PROSTATIC HYPERPLASIA WITHOUT LOWER URINRY TRACT SYMP Comment: - Continue tamsulosin, finasteride (9) DVT prophylaxis Code(s): Z29.9 - ENCOUNTER FOR PROPHYLACTIC MEASURES, UNSPECIFIED Comment: - Heparin SQ (10) DNR (do not resuscitate) Comment: Status and Disposition: Inpatient. Anticipate need for CLAUDINE when medically stable, possibly tomorrow if cleared by Psych. Attending: Gilberto Lopez
[2019-02-18] MEDS: QUEtiapine TAB* 25 MG PO PRN (15:15)
[2019-02-18] MEDS: Heparin VIAL(*) 5000 UNITS/ML VIAL (FIVE THOUSAND) SUBCUT SCH ×2 (15:15→21:35)
[2019-02-18] MEDS: Atorvastatin* 80 MG TAB PO SCH (21:12)
[2019-02-19] MEDS: Heparin VIAL(*) 5000 UNITS/ML VIAL (FIVE THOUSAND) SUBCUT SCH ×3 (05:41→20:57)
[2019-02-19 06:37] LABS: ABS Basophils 0.1 10^3/ul (0-0.2); ABS Eosinophils 0.5 10^3/ul (0-0.6); ABS Lymphocytes 1.7 10^3/ul (1.0-4.8); ABS Monocytes 0.8 10^3/ul (0-0.8); ABS Neutrophils 6.1 10^3/ul (1.5-7.7); Eosinophil % 5.5 %; Hematocrit 42 % (42-52); Hemoglobin 14.4 g/dL (14.0-18.0); Lymphocyte % 18.3 %; Mean Corpuscular HGB Conc 35 g/dL (31-36); Mean Corpuscular Hemoglobin 31 pg (27-31); Mean Corpuscular Volume 89 fL (80-94); Mean Platelet Volume 8.9 fL (7.4-10.4); Nucleated Red Blood Cells % 0.2; Platelet Count 281 10^3/uL (150-450); Red Blood Count 4.67 10^6 /uL (4.18-5.48); Red Cell Distribution Width 13 % (10-15); White Blood Count 9.1 10^3/uL (3.5-10.8)
[2019-02-19 06:54] LABS: BUN/Creatinine Ratio 34.1 (8-20); Calcium 9.2 mg/dL (8.6-10.3); EGFR African American 101.1 (>60); EGFR Non-African American 83.5 (>60); Potassium 3.5 mmol/L (3.5-5.0)
[2019-02-19] MEDS: QUEtiapine TAB* 25 MG PO SCH ×2 (08:25→20:56)
[2019-02-19] MEDS: Tamsulosin CAP* 0.4 MG PO SCH (08:25)
[2019-02-19] MEDS: Citalopram TAB* 40 MG PO SCH (08:25)
[2019-02-19] MEDS: busPIRone TAB* 10 MG PO SCH ×2 (08:25→20:56)
[2019-02-19] MEDS: Metoprolol Succinate XL TAB* 25 MG PO SCH (08:25)
[2019-02-19] MEDS: Aspirin EC TAB* 81 MG TAB.EC PO SCH (08:26)
[2019-02-19] MEDS: amLODIPine TAB* 5 MG PO SCH (08:26)
[2019-02-19] MEDS: Finasteride TAB* 5 MG PO SCH (08:26)
[2019-02-19] MEDS: GALANTAMINE 4 MG PO SCH ×2 (08:42→20:58)
--- NOTE | 2019-02-19 10:56 | PN ---
Subjective Date of Service: 02/19/19 Interval History: Mr. Sainz is feeling fine this morning, but is unwilling to wake and speak with me. He is making some unclear, nonsensical comments. Family not at bedside on my exam. Nursing reports dark colored urine. Patient has not woken up to eat breakfast this morning, but has made multiple attempts to get OOB. Family History: Unchanged from Admission Social History: Unchanged from Admission Past Medical History: Unchanged from Admission Objective Active Medications: Amlodipine Besylate (Norvasc Tab*) 7.5 mg PO DAILY [facility] Aspirin (Aspirin Ec Tab*) 81 mg PO DAILY [facility] Atorvastatin Calcium (Lipitor*) 80 mg PO 2100 [facility] Buspirone HCl (Buspar Tab*) 10 mg PO BID [facility] Citalopram Hydrobromide (Celexa Tab*) 40 mg PO DAILY [facility] Finasteride (Proscar Tab*) 5 mg PO DAILY [facility] Galantamine Hydrobromide (Galantamine (Nf)) 8 mg PO BID [facility]; Protocol Heparin Sodium (Porcine) (Heparin Vial(*)) 5,000 units SUBCUT Q8HR [facility] Metoprolol Succinate (Toprol Xl Tab*) 25 mg PO DAILY [facility] Quetiapine Fumarate (Seroquel Tab*) 50 mg PO Q6H PRN AGITATION Quetiapine Fumarate (Seroquel Tab*) 75 mg PO BID [facility] Tamsulosin HCl (Flomax Cap*) 0.8 mg PO DAILY [facility] Ziprasidone (Geodon Im Inj*) 10 mg IM BID PRN AGITATION - SEVERE Vital Signs - 8 hr 02/19/19 02/19/19 04:12 07:15 Temperature 98.0 F Pulse Rate 73 72 Respiratory 23 Rate Blood Pressure 130/46 (mmHg) O2 Sat by Pulse 96 100 Oximetry Oxygen Devices in Use Now: None Appearance: Elderly male laying in bed in NAD Ears/Nose/Mouth/Throat: Mucous Membranes Moist Neck: NL Appearance and Movements; NL JVP, Trachea Midline Respiratory: Symmetrical Chest Expansion and Respiratory Effort, Clear to Auscultation Cardiovascular: NL Sounds; No Murmurs; No JVD, RRR Abdominal: NL Sounds; No Tenderness; No Distention Extremities: No Edema Neurological: - - Awakens to voice Lines/Tubes/Other Access: Clean, Dry and Intact Peripheral IV Result Diagrams: 02/19/19 05:39 02/19/19 05:39 Assess/Plan/Problems-Billing Assessment: Mr. Sainz is a 78 yo M with PMH of Alzheimer's, CAD, HTN, HLD, and BPH; who presented to the ED with AMS after receiving multiple sedating medications earlier in the day. - Patient Problems (1) Altered mental status Code(s): R41.82 - ALTERED MENTAL STATUS, UNSPECIFIED Comment: - 3 weeks of increasing agitation at home ([place]); brought into ED after a fall and was given Versed, Benadryl, and Haldol and was subsequently sedation, now appears calm today - No evidence of infection or other medical etiology - Follows with Dr. Vincent outpatient; spoke with who believes this may be procurement representative of Karthikeyan Body dementia and would like input from Psychiatry regarding medication recommendations - Appreciate Psych consult; recommends avoiding benzos as these were likely contributing to falls - Continue Vince Ontiveros (2) Acute urinary retention Code(s): R33.8 - OTHER RETENTION OF URINE Comment: - Secondary to BPH - Would like to avoid Freedman as he will not tolerate having one in place - Continue toileting schedule and BID PVR, straight cath for PVR >300 (3) Alzheimer's disease Code(s): G30.9 - ALZHEIMER'S DISEASE, UNSPECIFIED; F02.80 - DEMENTIA IN OTH DISEASES CLASSD ELSWHR W/O BEHAVRL DISTURB Comment: - Possible Lewy body dementia - Continue galantamine (4) CAD (coronary artery disease) Code(s): I25.10 - ATHSCL HEART DISEASE OF [place] CORONARY ARTERY W/O ANG PCTRS Comment: - No CP or EKG changes - Trop elevated up to 0.07, suspect d/t demand and not ACS - would not want to pursue any invasive measures - Continue metoprolol, aspirin, atorvastatin (5) Hypertension Code(s): I10 - ESSENTIAL (PRIMARY) HYPERTENSION Comment: - Normotensive, SBP 130-140s - Hold ramipril - Continue amlodipine, metoprolol (6) Anxiety and depression Code(s): F41.9 - ANXIETY DISORDER, UNSPECIFIED; F32.9 - MAJOR DEPRESSIVE DISORDER, SINGLE EPISODE, UNSPECIFIED Comment: - Continue Celexa (7) Hyperlipidemia Code(s): E78.5 - HYPERLIPIDEMIA, UNSPECIFIED Comment: - Continue atorvastatin (8) BPH (benign prostatic hyperplasia) Code(s): N40.0 - BENIGN PROSTATIC HYPERPLASIA WITHOUT LOWER URINRY TRACT SYMP Comment: - Continue tamsulosin, finasteride (9) DVT prophylaxis Code(s): Z29.9 - ENCOUNTER FOR PROPHYLACTIC MEASURES, UNSPECIFIED Comment: - Heparin SQ (10) DNR (do not resuscitate) Comment: Status and Disposition: Inpatient. Anticipate need for CLAUDINE when cleared by Psych, though it will likely be difficult to find a bed. Attending: Korin Gibbs
--- NOTE | 2019-02-19 13:39 | CONSULT ---
Identification - Patient Identification Reason for Psychiatric Consultation: Violent Behavior -: Patient is a 78 year old, M admitted on 02/17/19. - MHU Identification Employment Status: Disabled Hx Psychiatric Hospitalization: No History - Objective HPI: Parker is seen for psychiatric follow up in room 417. Staff indicates that he can get fussy at times when repositioned or during med pass, but has otherwise been serene. Parker is awake today and being fed by his , Zan. She also notes that he seems less irritable today. He appears to be tolerating scheduled quetiapine well. Parker is disorganized and unable to provide history. They have no complaints. Exam Appearance: Well Developed/Nourished Hygiene: Normal Grooming: Disheveled Psychomotor Activities: Normal Exhibits Abnormal Movement: No Attitude and Relatedness: Appropriate Eye Contact: Poor - Speech Quality: Unpressured Latencies: Long Quantity: Terse Patient's Decription of Mood: "Okay" Observed Affect: Fair Affect Consistent with: Euthymia Patient's Thought Process: Disorganized Thought Content: No Passive Wish, No Suicidal Planning, No Homicidal Ideation, No Paranoid Ideation Experiencing Hallucinations: No, Sensorium is Clear Type of Hallucinations: Visual: No, Auditory: No, Command: No Level of Consciousness: Alert Orientation: No Intact, No Orientated to Time, No Orientated to Place, No Orientated to Person Impulse Control: Tenuous Insight and Judgement: Impaired Impression - Impression Clinical Impression: 78 y.o. , white male with a history of Alzheimer's dementia admitted to the 4th floor from the [facility], where he had been combative. Inpatient DSM-V Dx: G30.9 Merits Inpatient Hospitalization: No BSU: Problem List - Patient Problems (1) Alzheimer's disease Current Visit: Yes Status: Acute Code(s): G30.9 - ALZHEIMER'S DISEASE, UNSPECIFIED; F02.80 - DEMENTIA IN OTH DISEASES CLASSD ELSWHR W/O BEHAVRL DISTURB SNOMED Code(s): 59933725 Comment: - Possible Lewy body dementia - Continue galantamine Plan - Treatment Plan Treatment Plan: We have discontinued benzodiazepines due to several recent falls and increased quetiapine from 50 to 75mg PO BID. He can receive prn oral quetiapine or IM ziprasidone if agitated and violent on the unit. This clinician will be off service this weekend but will return to follow up with Mr. Sainz on Friday (). Continued Medication Management: Different Medication Medications: Current Medications Amlodipine Besylate (Norvasc Tab*) 7.5 mg PO DAILY [facility] Last Admin: 02/19/19 08:26 Dose: 7.5 mg Aspirin (Aspirin Ec Tab*) 81 mg PO DAILY [facility] Last Admin: 02/19/19 08:26 Dose: 81 mg Atorvastatin Calcium (Lipitor*) 80 mg PO 2100 [facility] Last Admin: 02/18/19 21:12 Dose: Not Given Buspirone HCl (Buspar Tab*) 10 mg PO BID [facility] Last Admin: 02/19/19 08:25 Dose: 10 mg Citalopram Hydrobromide (Celexa Tab*) 40 mg PO DAILY [facility] Last Admin: 02/19/19 08:25 Dose: 40 mg Finasteride (Proscar Tab*) 5 mg PO DAILY [facility] Last Admin: 02/19/19 08:26 Dose: 5 mg Galantamine Hydrobromide (Galantamine (Nf)) 8 mg PO BID [facility]; Protocol Last Admin: 02/19/19 08:42 Dose: Not Given Heparin Sodium (Porcine) (Heparin Vial(*)) 5,000 units SUBCUT Q8HR [facility] Last Admin: 02/19/19 05:41 Dose: 5,000 units Metoprolol Succinate (Toprol Xl Tab*) 25 mg PO DAILY [facility] Last Admin: 02/19/19 08:25 Dose: 25 mg Quetiapine Fumarate (Seroquel Tab*) 50 mg PO Q6H PRN PRN Reason: AGITATION Last Admin: 02/18/19 15:15 Dose: 50 mg Quetiapine Fumarate (Seroquel Tab*) 75 mg PO BID [facility] Last Admin: 02/19/19 08:25 Dose: 75 mg Tamsulosin HCl (Flomax Cap*) 0.8 mg PO DAILY [facility] Last Admin: 02/19/19 08:25 Dose: 0.8 mg Ziprasidone (Geodon Im Inj*) 10 mg IM BID PRN PRN Reason: AGITATION - SEVERE
[2019-02-19] MEDS: QUEtiapine TAB* 25 MG PO PRN (17:05)
[2019-02-19] MEDS: Atorvastatin* 80 MG TAB PO SCH (20:56)
[2019-02-20 01:20] LABS: Urine Appearance Turbid; Urine Bacteria Absent (Absent); Urine Bilirubin Negative (Negative); Urine Blood 3+ (Negative); Urine Glucose Negative (Negative); Urine Ketones Trace (Negative); Urine Nitrite Negative (Negative); Urine Protein 2+(100 mg/dL) (Negative); Urine Red Blood Cell 3+(>10/hpf) (Absent); Urine Specific Gravity 1.023 (1.010-1.030); Urine Urobilinogen Negative (Negative); Urine White Blood Cell Absent (Absent)
[2019-02-20 01:21] LABS: Urine Color Amber
[2019-02-20] MEDS: Heparin VIAL(*) 5000 UNITS/ML VIAL (FIVE THOUSAND) SUBCUT SCH ×3 (05:31→21:01)
[2019-02-20] MEDS: Aspirin EC TAB* 81 MG TAB.EC PO SCH (08:52)
[2019-02-20] MEDS: Tamsulosin CAP* 0.4 MG PO SCH (08:52)
[2019-02-20] MEDS: amLODIPine TAB* 5 MG PO SCH (08:52)
[2019-02-20] MEDS: Finasteride TAB* 5 MG PO SCH (08:52)
[2019-02-20] MEDS: Citalopram TAB* 40 MG PO SCH (08:52)
[2019-02-20] MEDS: busPIRone TAB* 10 MG PO SCH ×2 (08:52→21:00)
[2019-02-20] MEDS: Metoprolol Succinate XL TAB* 25 MG PO SCH (08:52)
[2019-02-20] MEDS: QUEtiapine TAB* 25 MG PO SCH ×2 (08:53→21:00)
[2019-02-20] MEDS: GALANTAMINE 4 MG PO SCH ×2 (08:53→21:00)
--- NOTE | 2019-02-20 12:37 | PN ---
Subjective Date of Service: 02/20/19 Interval History: Mr. Sainz is very confused this morning and unable to participate in any meaningful conversation. came later this morning and is interested in the hospice residence. Nursing staff notes some agitation when care is being provided. Family History: Unchanged from Admission Social History: Unchanged from Admission Past Medical History: Unchanged from Admission Objective Active Medications: Amlodipine Besylate (Norvasc Tab*) 7.5 mg PO DAILY [facility] Aspirin (Aspirin Ec Tab*) 81 mg PO DAILY [facility] Atorvastatin Calcium (Lipitor*) 80 mg PO 2100 [facility] Buspirone HCl (Buspar Tab*) 10 mg PO BID [facility] Citalopram Hydrobromide (Celexa Tab*) 40 mg PO DAILY [facility] Finasteride (Proscar Tab*) 5 mg PO DAILY [facility] Galantamine Hydrobromide (Galantamine (Nf)) 8 mg PO BID [facility]; Protocol Heparin Sodium (Porcine) (Heparin Vial(*)) 5,000 units SUBCUT Q8HR [facility] Metoprolol Succinate (Toprol Xl Tab*) 25 mg PO DAILY [facility] Quetiapine Fumarate (Seroquel Tab*) 50 mg PO Q6H PRN AGITATION Quetiapine Fumarate (Seroquel Tab*) 75 mg PO BID [facility] Tamsulosin HCl (Flomax Cap*) 0.8 mg PO DAILY [facility] Ziprasidone (Geodon Im Inj*) 10 mg IM BID PRN AGITATION - SEVERE Vital Signs - 8 hr 02/20/19 02/20/19 02/20/19 08:00 08:40 11:35 Temperature 98.1 F 97.8 F Pulse Rate 85 61 Respiratory 24 16 16 Rate Blood Pressure 147/74 123/54 (mmHg) O2 Sat by Pulse 99 97 Oximetry Oxygen Devices in Use Now: None Appearance: Elderly male laying in bed in NAD Ears/Nose/Mouth/Throat: Mucous Membranes Moist Neck: NL Appearance and Movements; NL JVP, Trachea Midline Respiratory: Symmetrical Chest Expansion and Respiratory Effort, Clear to Auscultation Cardiovascular: NL Sounds; No Murmurs; No JVD, RRR Abdominal: NL Sounds; No Tenderness; No Distention Extremities: No Edema Neurological: - - Awake and alert Nutrition: Taking PO's Result Diagrams: 02/19/19 05:39 02/19/19 05:39 Assess/Plan/Problems-Billing Assessment: Mr. Sainz is a 78 yo M with PMH of Alzheimer's, CAD, HTN, HLD, and BPH; who presented to the ED with AMS after receiving multiple sedating medications earlier in the day. - Patient Problems (1) Altered mental status Code(s): R41.82 - ALTERED MENTAL STATUS, UNSPECIFIED Comment: - 3 weeks of increasing agitation at home ([place]); brought into ED after a fall and was given Versed, Benadryl, and Haldol and was subsequently sedation, now appears calm today - No evidence of infection or other medical etiology - Follows with Dr. Vincent outpatient; spoke with who believes this may be auto service representative of Karthikeyan Body dementia and would like input from Psychiatry regarding medication recommendations - Appreciate Psych consult; recommends avoiding benzos as these were likely contributing to falls - Continue Vince Ontiveros (2) Acute urinary retention Code(s): R33.8 - OTHER RETENTION OF URINE Comment: - Secondary to BPH - Would like to avoid Freedman as he will not tolerate having one in place - Continue toileting schedule and BID PVR, straight cath for PVR >300 (3) Alzheimer's disease Code(s): G30.9 - ALZHEIMER'S DISEASE, UNSPECIFIED; F02.80 - DEMENTIA IN OTH DISEASES CLASSD ELSWHR W/O BEHAVRL DISTURB Comment: - Possible Lewy body dementia - Continue galantamine (4) CAD (coronary artery disease) Code(s): I25.10 - ATHSCL HEART DISEASE OF [place] CORONARY ARTERY W/O ANG PCTRS Comment: - No CP or EKG changes - Trop elevated up to 0.07, suspect d/t demand and not ACS - would not want to pursue any invasive measures - Continue metoprolol, aspirin, atorvastatin (5) Hypertension Code(s): I10 - ESSENTIAL (PRIMARY) HYPERTENSION Comment: - Normotensive, SBP 130-140s - Hold ramipril - Continue amlodipine, metoprolol (6) Anxiety and depression Code(s): F41.9 - ANXIETY DISORDER, UNSPECIFIED; F32.9 - MAJOR DEPRESSIVE DISORDER, SINGLE EPISODE, UNSPECIFIED Comment: - Continue Celexa (7) Hyperlipidemia Code(s): E78.5 - HYPERLIPIDEMIA, UNSPECIFIED Comment: - Continue atorvastatin (8) BPH (benign prostatic hyperplasia) Code(s): N40.0 - BENIGN PROSTATIC HYPERPLASIA WITHOUT LOWER URINRY TRACT SYMP Comment: - Continue tamsulosin, finasteride (9) DVT prophylaxis Code(s): Z29.9 - ENCOUNTER FOR PROPHYLACTIC MEASURES, UNSPECIFIED Comment: - Heparin SQ (10) DNR (do not resuscitate) Comment: Status and Disposition: Inpatient. Anticipate d/c to [facility] when bed available. Attending: Koirn Gibbs
[2019-02-20] MEDS: Atorvastatin* 80 MG TAB PO SCH (21:00)
[2019-02-21] MEDS: Heparin VIAL(*) 5000 UNITS/ML VIAL (FIVE THOUSAND) SUBCUT SCH (04:45)
[2019-02-21] MEDS: busPIRone TAB* 10 MG PO SCH ×3 (08:25→22:37)
[2019-02-21] MEDS: Tamsulosin CAP* 0.4 MG PO SCH (08:25)
[2019-02-21] MEDS: amLODIPine TAB* 5 MG PO SCH (08:25)
[2019-02-21] MEDS: Finasteride TAB* 5 MG PO SCH (08:25)
[2019-02-21] MEDS: Aspirin EC TAB* 81 MG TAB.EC PO SCH (08:25)
[2019-02-21] MEDS: Citalopram TAB* 40 MG PO SCH (08:25)
[2019-02-21] MEDS: Metoprolol Succinate XL TAB* 25 MG PO SCH (08:25)
[2019-02-21] MEDS: QUEtiapine TAB* 25 MG PO SCH ×3 (08:25→22:39)
[2019-02-21] MEDS: GALANTAMINE 4 MG PO SCH ×2 (08:57→22:24)
[2019-02-21] MEDS: QUEtiapine TAB* 25 MG PO PRN (11:52)
--- NOTE | 2019-02-21 12:39 | PN ---
Subjective Date of Service: 02/21/19 Interval History: Patient seen, chart reviewed. Patient unable to participate in exam 2/2 condition. Extensive discussion with Zan, regarding goals of care. She is agreeable to hospice, requests comfort measures only. Family History: Unchanged from Admission Social History: Unchanged from Admission Past Medical History: Unchanged from Admission Objective Active Medications: Amlodipine Besylate (Norvasc Tab*) 7.5 mg PO DAILY [facility] Last Admin: 02/21/19 08:25 Dose: 7.5 mg Buspirone HCl (Buspar Tab*) 10 mg PO BID [facility] Last Admin: 02/21/19 08:25 Dose: 10 mg Citalopram Hydrobromide (Celexa Tab*) 40 mg PO DAILY [facility] Last Admin: 02/21/19 08:25 Dose: 40 mg Finasteride (Proscar Tab*) 5 mg PO DAILY [facility] Last Admin: 02/21/19 08:25 Dose: 5 mg Galantamine Hydrobromide (Galantamine (Nf)) 8 mg PO BID [facility]; Protocol Last Admin: 02/21/19 08:57 Dose: Not Given Metoprolol Succinate (Toprol Xl Tab*) 25 mg PO DAILY [facility] Last Admin: 02/21/19 08:25 Dose: 25 mg Quetiapine Fumarate (Seroquel Tab*) 50 mg PO Q6H PRN PRN Reason: AGITATION Last Admin: 02/21/19 11:52 Dose: 50 mg Quetiapine Fumarate (Seroquel Tab*) 75 mg PO BID [facility] Last Admin: 02/21/19 08:25 Dose: 75 mg Tamsulosin HCl (Flomax Cap*) 0.8 mg PO DAILY [facility] Last Admin: 02/21/19 08:25 Dose: 0.8 mg Ziprasidone (Geodon Im Inj*) 10 mg IM BID PRN PRN Reason: AGITATION - SEVERE Vital Signs - 8 hr 02/21/19 02/21/19 08:00 08:57 Temperature 97.9 F Pulse Rate 83 Respiratory 19 20 Rate Blood Pressure 136/59 (mmHg) O2 Sat by Pulse 98 Oximetry Oxygen Devices in Use Now: None Appearance: sleeping, NAD Ears/Nose/Mouth/Throat: Mucous Membranes Moist Respiratory: Symmetrical Chest Expansion and Respiratory Effort, Clear to Auscultation Cardiovascular: No Edema Extremities: No Edema Neurological: - - confused at baseline with frequent periods of agitation Nutrition: - - poor intake Result Diagrams: 02/19/19 05:39 02/19/19 05:39 Microbiology and Other Data: Microbiology 02/16/19 14:45 Nasal Screen MRSA (PCR) - Final Nasal Mrsa Not Detected Assess/Plan/Problems-Billing Assessment: Mr. Sainz is a 78 yo M with PMH of Alzheimer's, CAD, HTN, HLD, and BPH; who presented to the ED with AMS after receiving multiple sedating medications earlier in the day. - Patient Problems (1) Altered mental status Code(s): R41.82 - ALTERED MENTAL STATUS, UNSPECIFIED SNOMED Code(s): 705748197 Comment: - 3 weeks of increasing agitation at home ([place]); brought into ED after a fall and was given Versed, Benadryl, and Haldol and was subsequently sedated - No evidence of infection or other medical etiology - Follows with Dr. King peña, also seen by psychiatry during this admission for medication recommendations - Continue Seroquel, Geodon PRN, avoid benzos (likely cause of falls) (2) Alzheimer's disease Code(s): G30.9 - ALZHEIMER'S DISEASE, UNSPECIFIED; F02.80 - DEMENTIA IN OTH DISEASES CLASSD ELSWHR W/O BEHAVRL DISTURB SNOMED Code(s): 96448012 Comment: - Possible Lewy body dementia - Poor PO intake per and primary RN with decreasing urine output - Will continue galantamine and supportive care, however, patient's is more interested in comfort and hospice at this point (3) Acute urinary retention Code(s): R33.8 - OTHER RETENTION OF URINE SNOMED Code(s): 983724095 Comment: - Secondary to BPH, will continue flomax and finasteride - Discussed edward with , urine output has been poor last 24 hours, but to avoid stimulation and straight cathing, has agreed to edward insertion for comfort only - Bladder scans have been <150ml with very little output over the last 24 hours - declines IVF to support urine output and hydration (4) CAD (coronary artery disease) Code(s): I25.10 - ATHSCL HEART DISEASE OF [place] CORONARY ARTERY W/O ANG PCTRS SNOMED Code(s): 19075662 Comment: - Per , no further interventions on cardiac issues - Will continue BP meds only and DC ASA and statin (5) DVT prophylaxis Code(s): Z29.9 - ENCOUNTER FOR PROPHYLACTIC MEASURES, UNSPECIFIED SNOMED Code( s): 056249851 Comment: - Discontinue HSQ in light of Comfort Measures (6) DNR (do not resuscitate) Comment: Status and Disposition: Inpatient. Lengthy discussion with patient's . She is requesting Hospice sign on either at [facility] or at the Hospice residence given that patient is not eating and urine output is poor. Relayed to special education case manager, Taya. Comfort Measures order placed and relayed to primary RN.
[2019-02-22] MEDS: QUEtiapine TAB* 25 MG PO SCH ×3 (09:52→20:18)
[2019-02-22] MEDS: busPIRone TAB* 10 MG PO SCH ×3 (09:52→20:18)
[2019-02-22] MEDS: Tamsulosin CAP* 0.4 MG PO SCH (10:04)
[2019-02-22] MEDS: Citalopram TAB* 40 MG PO SCH (10:04)
[2019-02-22] MEDS: Metoprolol Succinate XL TAB* 25 MG PO SCH (10:04)
[2019-02-22] MEDS: Finasteride TAB* 5 MG PO SCH (10:04)
[2019-02-22] MEDS: amLODIPine TAB* 5 MG PO SCH (10:04)
[2019-02-22] MEDS: GALANTAMINE 4 MG PO SCH ×2 (10:04→20:23)
--- NOTE | 2019-02-22 17:05 | PN ---
Subjective Date of Service: 02/22/19 Interval History: Patient seen, difficult to examine, as he agitates easily. At this time, patient does appear to be resting, but mixed with periods of fidgeting with blanket and edward. Has pulled off his gown and socks. Family History: Unchanged from Admission Social History: Unchanged from Admission Past Medical History: Unchanged from Admission Objective Active Medications: Amlodipine Besylate (Norvasc Tab*) 7.5 mg PO DAILY [facility] Last Admin: 02/22/19 10:04 Dose: Not Given Buspirone HCl (Buspar Tab*) 10 mg PO BID [facility] Last Admin: 02/22/19 10:06 Dose: Not Given Citalopram Hydrobromide (Celexa Tab*) 40 mg PO DAILY [facility] Last Admin: 02/22/19 10:04 Dose: Not Given Finasteride (Proscar Tab*) 5 mg PO DAILY [facility] Last Admin: 02/22/19 10:04 Dose: Not Given Galantamine Hydrobromide (Galantamine (Nf)) 8 mg PO BID [facility]; Protocol Last Admin: 02/22/19 10:04 Dose: Not Given Metoprolol Succinate (Toprol Xl Tab*) 25 mg PO DAILY [facility] Last Admin: 02/22/19 10:04 Dose: Not Given Quetiapine Fumarate (Seroquel Tab*) 50 mg PO Q6H PRN PRN Reason: AGITATION Last Admin: 02/21/19 11:52 Dose: 50 mg Quetiapine Fumarate (Seroquel Tab*) 75 mg PO BID [facility] Last Admin: 02/22/19 10:04 Dose: Not Given Tamsulosin HCl (Flomax Cap*) 0.8 mg PO DAILY [facility] Last Admin: 02/22/19 10:04 Dose: Not Given Ziprasidone (Geodon Im Inj*) 10 mg IM BID PRN PRN Reason: AGITATION - SEVERE Oxygen Devices in Use Now: None Appearance: anxious Eyes: PERRLA Respiratory: Symmetrical Chest Expansion and Respiratory Effort, Clear to Auscultation Extremities: No Edema Skin: No Rash or Ulcers Neurological: - - confused with periods of agitation Nutrition: - - refusing PO intake and meds Result Diagrams: 02/19/19 05:39 02/19/19 05:39 Microbiology and Other Data: Microbiology 02/16/19 14:45 Nasal Screen MRSA (PCR) - Final Nasal Mrsa Not Detected Assess/Plan/Problems-Billing Assessment: Mr. Sainz is a 78 yo M with PMH of Alzheimer's, CAD, HTN, HLD, and BPH; who presented to the ED with AMS after receiving multiple sedating medications earlier in the day. - Patient Problems (1) Altered mental status Code(s): R41.82 - ALTERED MENTAL STATUS, UNSPECIFIED SNOMED Code(s): 692522460 Comment: - 2/2 advanced (lewy body?) dementia - Quickly advancing AMS with refusal to take any PO, difficult to get patient to take meds in apple sauce per nursing notes - electing hospice and declines IVF or parenteral nutrition (2) Alzheimer's disease Code(s): G30.9 - ALZHEIMER'S DISEASE, UNSPECIFIED; F02.80 - DEMENTIA IN OTH DISEASES CLASSD ELSWHR W/O BEHAVRL DISTURB SNOMED Code(s): 71653986 Comment: - As per above - continue supportive/comfort care (3) Acute urinary retention Code(s): R33.8 - OTHER RETENTION OF URINE SNOMED Code(s): 148369413 Comment: - Secondary to BPH, will continue flomax and finasteride if patient will take - Continue edward - Monitor output, which has been decreasing 2/2 poor PO intake - declines IVF (4) CAD (coronary artery disease) Code(s): I25.10 - ATHSCL HEART DISEASE OF [place] CORONARY ARTERY W/O ANG PCTRS SNOMED Code(s): 25976808 Comment: - Per , no further interventions on cardiac issues - Will continue BP meds only if patient will take (5) DVT prophylaxis Code(s): Z29.9 - ENCOUNTER FOR PROPHYLACTIC MEASURES, UNSPECIFIED SNOMED Code( s): 248083956 Comment: - Discontinue HSQ in light of Comfort Measures (6) DNR (do not resuscitate) Comment: Status and Disposition: Inpatient on hospice pending referral to the Residence or same day sign on in appropriate facility for Hospice.
[2019-02-23] MEDS: Citalopram TAB* 40 MG PO SCH (08:34)
[2019-02-23] MEDS: busPIRone TAB* 10 MG PO SCH ×2 (08:34→21:00)
[2019-02-23] MEDS: QUEtiapine TAB* 25 MG PO SCH ×2 (08:35→21:00)
[2019-02-23] MEDS: amLODIPine TAB* 5 MG PO SCH (09:33)
[2019-02-23] MEDS: Finasteride TAB* 5 MG PO SCH (09:34)
[2019-02-23] MEDS: GALANTAMINE 4 MG PO SCH ×2 (09:35→20:19)
[2019-02-23] MEDS: Tamsulosin CAP* 0.4 MG PO SCH (09:35)
[2019-02-23] MEDS: Metoprolol Succinate XL TAB* 25 MG PO SCH (09:35)
[2019-02-23] MEDS ORDERED: Morphine ORAL.SOLN 10 mg* 2 MG/ML UDC 5 ml PO PRN (11:40)
--- NOTE | 2019-02-23 13:07 | CONSULT ---
Identification - Patient Identification Reason for Psychiatric Consultation: Violent Behavior -: Patient is a 78 year old, M admitted on 02/17/19. - MHU Identification Employment Status: Disabled Hx Psychiatric Hospitalization: No History - Objective HPI: Parker is seen for psychiatric follow up in room 417. He has now gone 4 days without eating or drinking much and not passing urine. His status has changed to complete comfort care and he has no IV. He has only been able to take medications sparingly and missed some doses of quetiapine 2 days ago, leading perhaps to some worsening of agitation in which he slapped a cup of water out of a nurse's hand. There is a question as to whether he is experiencing pain as he is often observed to be wincing and jerking his muscles. I spoke with the attending, Jazmyne Kennedy, and nursing staff and we discussed a possible strategy of giving him pain medications. The patient is sleeping on exam and was not woken to interview. His Zan is grateful to the team for his care and is interested in pursuing hospice placement. Exam Appearance: Well Developed/Nourished Hygiene: Normal Grooming: Disheveled Psychomotor Activities: Abnormal-Decreased Exhibits Abnormal Movement: No Eye Contact: Poor Thought Content: No Passive Wish, No Suicidal Planning, No Homicidal Ideation, No Paranoid Ideation Type of Hallucinations: Visual: No, Auditory: No, Command: No Level of Consciousness: Obtunded Orientation: No Intact, No Orientated to Time, No Orientated to Place, No Orientated to Person Impulse Control: Tenuous Insight and Judgement: Impaired Impression - Impression Clinical Impression: 78 y.o. , white male with a history of Alzheimer's dementia admitted to the 4th floor from the [facility], where he had been combative. Inpatient DSM-V Dx: G30.9 Merits Inpatient Hospitalization: No BSU: Problem List - Patient Problems (1) Alzheimer's disease Current Visit: Yes Status: Acute Code(s): G30.9 - ALZHEIMER'S DISEASE, UNSPECIFIED; F02.80 - DEMENTIA IN OTH DISEASES CLASSD ELSWHR W/O BEHAVRL DISTURB SNOMED Code(s): 95586542 Comment: - As per above - continue supportive/comfort care Plan - Treatment Plan Treatment Plan: The patient is now on end of life care. Continue quetiapine 75mg PO BID for comfort. Psychiatry will continue to follow intermittently. Await hospice placement. Continued Medication Management: Continue Outpt Medication Medications: Current Medications Amlodipine Besylate (Norvasc Tab*) 7.5 mg PO DAILY [facility] Last Admin: 02/23/19 09:33 Dose: Not Given Buspirone HCl (Buspar Tab*) 10 mg PO BID [facility] Last Admin: 02/23/19 08:34 Dose: 10 mg Citalopram Hydrobromide (Celexa Tab*) 40 mg PO DAILY [facility] Last Admin: 02/23/19 08:34 Dose: 40 mg Finasteride (Proscar Tab*) 5 mg PO DAILY [facility] Last Admin: 02/23/19 09:34 Dose: Not Given Galantamine Hydrobromide (Galantamine (Nf)) 8 mg PO BID [facility]; Protocol Last Admin: 02/23/19 09:35 Dose: Not Given Metoprolol Succinate (Toprol Xl Tab*) 25 mg PO DAILY [facility] Last Admin: 02/23/19 09:35 Dose: Not Given Morphine Sulfate (Morphine Oral.Soln 10 Mg*) 10 mg PO Q4H PRN PRN Reason: PAIN - SEVERE Quetiapine Fumarate (Seroquel Tab*) 50 mg PO Q6H PRN PRN Reason: AGITATION Last Admin: 02/21/19 11:52 Dose: 50 mg Quetiapine Fumarate (Seroquel Tab*) 75 mg PO BID [facility] Last Admin: 02/23/19 08:35 Dose: 75 mg Tamsulosin HCl (Flomax Cap*) 0.8 mg PO DAILY [facility] Last Admin: 02/23/19 09:35 Dose: Not Given Ziprasidone (Geodon Im Inj*) 10 mg IM BID PRN PRN Reason: AGITATION - SEVERE
--- NOTE | 2019-02-23 16:23 | PN ---
Subjective Date of Service: 02/23/19 Interval History: Patient seen and examined. at bedside. Patient remains confused with periods of agitation and grimacing. Not eating or taking hydration. Unable to obtain ROS. Family History: Unchanged from Admission Social History: Unchanged from Admission Past Medical History: Unchanged from Admission Objective Active Medications: Amlodipine Besylate (Norvasc Tab*) 7.5 mg PO DAILY [facility] Last Admin: 02/23/19 09:33 Dose: Not Given Buspirone HCl (Buspar Tab*) 10 mg PO BID [facility] Last Admin: 02/23/19 08:34 Dose: 10 mg Citalopram Hydrobromide (Celexa Tab*) 40 mg PO DAILY [facility] Last Admin: 02/23/19 08:34 Dose: 40 mg Finasteride (Proscar Tab*) 5 mg PO DAILY [facility] Last Admin: 02/23/19 09:34 Dose: Not Given Galantamine Hydrobromide (Galantamine (Nf)) 8 mg PO BID [facility]; Protocol Last Admin: 02/23/19 09:35 Dose: Not Given Metoprolol Succinate (Toprol Xl Tab*) 25 mg PO DAILY [facility] Last Admin: 02/23/19 09:35 Dose: Not Given Morphine Sulfate (Morphine Oral.Soln 10 Mg*) 10 mg PO Q4H PRN PRN Reason: PAIN - SEVERE Quetiapine Fumarate (Seroquel Tab*) 50 mg PO Q6H PRN PRN Reason: AGITATION Last Admin: 02/21/19 11:52 Dose: 50 mg Quetiapine Fumarate (Seroquel Tab*) 75 mg PO BID [facility] Last Admin: 02/23/19 08:35 Dose: 75 mg Tamsulosin HCl (Flomax Cap*) 0.8 mg PO DAILY [facility] Last Admin: 02/23/19 09:35 Dose: Not Given Ziprasidone (Geodon Im Inj*) 10 mg IM BID PRN PRN Reason: AGITATION - SEVERE Vital Signs - 8 hr 02/23/19 09:36 Pulse Rate 74 Respiratory 12 Rate Oxygen Devices in Use Now: None Appearance: lethargic, confused, NAD Ears/Nose/Mouth/Throat: - - dry oral mucosa Neck: Trachea Midline Respiratory: Symmetrical Chest Expansion and Respiratory Effort, Clear to Auscultation Cardiovascular: RRR Extremities: No Edema Lines/Tubes/Other Access: Clean, Dry and Intact Edward Result Diagrams: 02/19/19 05:39 02/19/19 05:39 Microbiology and Other Data: Microbiology 02/16/19 14:45 Nasal Screen MRSA (PCR) - Final Nasal Mrsa Not Detected Assess/Plan/Problems-Billing Assessment: Mr. Sainz is a 78 yo M with PMH of Alzheimer's, CAD, HTN, HLD, and BPH; who presented to the ED with AMS after receiving multiple sedating medications earlier in the day. - Patient Problems (1) Altered mental status Code(s): R41.82 - ALTERED MENTAL STATUS, UNSPECIFIED SNOMED Code(s): 053078851 Comment: - 2/2 advanced (lewy body?) dementia - Quickly advancing AMS with refusal to take any PO, difficult to get patient to take meds in apple sauce per nursing notes - electing hospice and declines IVF or parenteral nutrition - Will trial roxanol for comfort and agitation since patient not taking Po meds crushed (2) Alzheimer's disease Code(s): G30.9 - ALZHEIMER'S DISEASE, UNSPECIFIED; F02.80 - DEMENTIA IN OTH DISEASES CLASSD ELSWHR W/O BEHAVRL DISTURB SNOMED Code(s): 35071969 Comment: - As per above - continue supportive/comfort care (3) Acute urinary retention Code(s): R33.8 - OTHER RETENTION OF URINE SNOMED Code(s): 091187976 Comment: - Secondary to BPH, will continue flomax and finasteride if patient will take - Continue edward - Monitor output, which has been decreasing 2/2 poor PO intake - declines IVF (4) CAD (coronary artery disease) Code(s): I25.10 - ATHSCL HEART DISEASE OF [place] CORONARY ARTERY W/O ANG PCTRS SNOMED Code(s): 71008405 Comment: - Per , no further interventions on cardiac issues - Will continue BP meds only if patient will take (5) DVT prophylaxis Code(s): Z29.9 - ENCOUNTER FOR PROPHYLACTIC MEASURES, UNSPECIFIED SNOMED Code( s): 039380978 Comment: - Discontinue HSQ in light of Comfort Measures (6) DNR (do not resuscitate) Comment: Status and Disposition: Inpatient on hospice pending referral to the Residence or same day sign on in appropriate facility for Hospice.
[2019-02-23] MEDS: Morphine ORAL CONCENTRATE* 5 MG/0.25 ML ORAL.SYRIN PO PRN (17:49)
[2019-02-24 03:59] VITALS: BP 147/44
[2019-02-24] MEDS: Tamsulosin CAP* 0.4 MG PO SCH (07:50)
[2019-02-24] MEDS: GALANTAMINE 4 MG PO SCH ×2 (07:50→19:45)
[2019-02-24] MEDS: QUEtiapine TAB* 25 MG PO SCH ×2 (07:50→19:35)
[2019-02-24] MEDS: amLODIPine TAB* 5 MG PO SCH (07:50)
[2019-02-24] MEDS: Metoprolol Succinate XL TAB* 25 MG PO SCH (07:50)
[2019-02-24] MEDS: busPIRone TAB* 10 MG PO SCH ×2 (07:50→19:34)
[2019-02-24] MEDS: Finasteride TAB* 5 MG PO SCH (07:50)
[2019-02-24] MEDS: Citalopram TAB* 40 MG PO SCH (07:50)
[2019-02-24] MEDS: Morphine ORAL CONCENTRATE* 5 MG/0.25 ML ORAL.SYRIN PO PRN (13:18)
--- NOTE | 2019-02-24 14:30 | PN ---
Subjective Date of Service: 02/24/19 Interval History: Patient seen and examined. No acute overnight events. Patient remains calm, but not taking any PO intake or fluids. Nursing able to get patient to take seroquel in ice cream last night. Urine output remains poor. Family History: Unchanged from Admission Social History: Unchanged from Admission Past Medical History: Unchanged from Admission Objective Active Medications: Amlodipine Besylate (Norvasc Tab*) 7.5 mg PO DAILY [facility] Last Admin: 02/24/19 07:50 Dose: Not Given Buspirone HCl (Buspar Tab*) 10 mg PO BID [facility] Last Admin: 02/24/19 07:50 Dose: 10 mg Citalopram Hydrobromide (Celexa Tab*) 40 mg PO DAILY [facility] Last Admin: 02/24/19 07:50 Dose: 40 mg Finasteride (Proscar Tab*) 5 mg PO DAILY [facility] Last Admin: 02/24/19 07:50 Dose: Not Given Galantamine Hydrobromide (Galantamine (Nf)) 8 mg PO BID [facility]; Protocol Last Admin: 02/24/19 07:50 Dose: Not Given Metoprolol Succinate (Toprol Xl Tab*) 25 mg PO DAILY [facility] Last Admin: 02/24/19 07:50 Dose: Not Given Morphine Sulfate (Morphine Oral Concentrate*) 10 mg PO Q4H PRN PRN Reason: PAIN - SEVERE Last Admin: 02/24/19 13:18 Dose: 10 mg Quetiapine Fumarate (Seroquel Tab*) 50 mg PO Q6H PRN PRN Reason: AGITATION Last Admin: 02/21/19 11:52 Dose: 50 mg Quetiapine Fumarate (Seroquel Tab*) 75 mg PO BID [facility] Last Admin: 02/24/19 07:50 Dose: 75 mg Tamsulosin HCl (Flomax Cap*) 0.8 mg PO DAILY [facility] Last Admin: 02/24/19 07:50 Dose: Not Given Ziprasidone (Geodon Im Inj*) 10 mg IM BID PRN PRN Reason: AGITATION - SEVERE Vital Signs - 8 hr 02/24/19 02/24/19 02/24/19 07:15 07:55 13:18 Temperature 98.2 F Pulse Rate 71 Respiratory 18 18 22 Rate 02/24/19 13:51 Temperature Pulse Rate Respiratory 18 Rate Oxygen Devices in Use Now: None Appearance: sleepy, NAD Eyes: No Scleral Icterus Ears/Nose/Mouth/Throat: - - dry oral mucosa Neck: NL Appearance and Movements; NL JVP Respiratory: Symmetrical Chest Expansion and Respiratory Effort, Clear to Auscultation Abdominal: NL Sounds; No Tenderness; No Distention Extremities: No Edema, No Clubbing, Cyanosis Neurological: - - confused, no agitation Nutrition: - - poor/minimal oral intake Result Diagrams: 02/19/19 05:39 02/19/19 05:39 Microbiology and Other Data: Microbiology 02/16/19 14:45 Nasal Screen MRSA (PCR) - Final Nasal Mrsa Not Detected Assess/Plan/Problems-Billing Assessment: Mr. Sainz is a 78 yo M with PMH of Alzheimer's, CAD, HTN, HLD, and BPH; who presented to the ED with AMS after receiving multiple sedating medications earlier in the day. - Patient Problems (1) Altered mental status Code(s): R41.82 - ALTERED MENTAL STATUS, UNSPECIFIED SNOMED Code(s): 529609142 Comment: - 2/2 advanced (lewy body?) dementia - Quickly advancing AMS - Almost no PO intake, nurse was able to get patient to take seroquel in ice cream - electing hospice and declines IVF or parenteral nutrition - Continue trial of roxanol for comfort - VS otherwise stable (2) Alzheimer's disease Code(s): G30.9 - ALZHEIMER'S DISEASE, UNSPECIFIED; F02.80 - DEMENTIA IN OTH DISEASES CLASSD ELSWHR W/O BEHAVRL DISTURB SNOMED Code(s): 99859969 Comment: - As per above - continue supportive/comfort care (3) Acute urinary retention Code(s): R33.8 - OTHER RETENTION OF URINE SNOMED Code(s): 196831282 Comment: - Continue edward - Urine output scanty over last 24 hours, <25ml/hr and dark (4) DNR (do not resuscitate) Comment: Status and Disposition: Inpatient on hospice pending referral to the Residence or same day sign on in appropriate facility for Hospice. Please see SW notes.
[2019-02-25] MEDS: Morphine ORAL CONCENTRATE* 5 MG/0.25 ML ORAL.SYRIN PO PRN ×5 (02:16→19:56)
[2019-02-25] MEDS: QUEtiapine TAB* 25 MG PO PRN (04:52)
[2019-02-25] MEDS: QUEtiapine TAB* 25 MG PO SCH (09:06)
[2019-02-25] MEDS: busPIRone TAB* 10 MG PO SCH (09:06)
[2019-02-25] MEDS: Citalopram TAB* 40 MG PO SCH (09:07)
[2019-02-25] MEDS: amLODIPine TAB* 5 MG PO SCH (09:19)
[2019-02-25] MEDS: Finasteride TAB* 5 MG PO SCH (09:19)
[2019-02-25] MEDS: GALANTAMINE 4 MG PO SCH (09:20)
[2019-02-25] MEDS: Metoprolol Succinate XL TAB* 25 MG PO SCH (09:20)
[2019-02-25] MEDS: Tamsulosin CAP* 0.4 MG PO SCH (09:20)
--- NOTE | 2019-02-25 11:10 | PN ---
Subjective - Subjective Date of Service: 02/25/19 Service Type: [id number] Hosp care 15 min low complexity Subjective: This clinician followed up with Parker in his room in the presence of his and two daughters. Parker was able to receive quetiapine this morning and is now comfortably asleep and I understand that when he misses doses of this he can display agitation, which is complicating disposition. Prior to entering the room I discussed the case with [address] [place] [address] staff and client renewal specialist , Dr. Tello. We discussed a strategy of increasing the frequency of prn morphine and replacing quetiapine tablets with scheduled haldol in liquid form. This was then conveyed to the family, who agreed. I did not wake the patient up to assess his mental status under the circumstances. Assessment - Assessment Inpatient DSM-V Dx: G30.9 Clinical Impression: 78 y.o. , white male with a history of Alzheimer's dementia admitted to the 4th floor from the [facility], where he had been combative. BSU: Problem List - Patient Problems (1) Alzheimer's disease Current Visit: Yes Status: Acute Code(s): G30.9 - ALZHEIMER'S DISEASE, UNSPECIFIED; F02.80 - DEMENTIA IN OTH DISEASES CLASSD ELSWHR W/O BEHAVRL DISTURB SNOMED Code(s): 71525882 Comment: - As per above - continue supportive/comfort care Plan - Plan Treatment Plan: The patient is now on end of life care. Continue quetiapine 75mg PO BID for comfort. Psychiatry will continue to follow intermittently. Await hospice placement. Medications: Current Medications Amlodipine Besylate (Norvasc Tab*) 7.5 mg PO DAILY [facility] Last Admin: 02/25/19 09:19 Dose: Not Given Buspirone HCl (Buspar Tab*) 10 mg PO BID [facility] Last Admin: 02/25/19 09:06 Dose: 10 mg Citalopram Hydrobromide (Celexa Tab*) 40 mg PO DAILY [facility] Last Admin: 02/25/19 09:07 Dose: 40 mg Finasteride (Proscar Tab*) 5 mg PO DAILY [facility] Last Admin: 02/25/19 09:19 Dose: Not Given Galantamine Hydrobromide (Galantamine (Nf)) 8 mg PO BID [facility]; Protocol Last Admin: 02/25/19 09:20 Dose: Not Given Metoprolol Succinate (Toprol Xl Tab*) 25 mg PO DAILY [facility] Last Admin: 02/25/19 09:20 Dose: Not Given Morphine Sulfate (Morphine Oral Concentrate*) 10 mg PO Q4H PRN PRN Reason: PAIN - SEVERE Last Admin: 02/25/19 06:17 Dose: 10 mg Quetiapine Fumarate (Seroquel Tab*) 50 mg PO Q6H PRN PRN Reason: AGITATION Last Admin: 02/25/19 04:52 Dose: 50 mg Quetiapine Fumarate (Seroquel Tab*) 75 mg PO BID [facility] Last Admin: 02/25/19 09:06 Dose: 75 mg Tamsulosin HCl (Flomax Cap*) 0.8 mg PO DAILY [facility] Last Admin: 02/25/19 09:20 Dose: Not Given Ziprasidone (Geodon Im Inj*) 10 mg IM BID PRN PRN Reason: AGITATION - SEVERE
--- NOTE | 2019-02-25 11:12 | CONSULT ---
Identification - Patient Identification Reason for Psychiatric Consultation: Violent Behavior -: Patient is a 78 year old, M admitted on 02/17/19. - MHU Identification Employment Status: Disabled Hx Psychiatric Hospitalization: No History - Objective HPI: This clinician followed up with Parker in his room in the presence of his and two daughters. Parker was able to receive quetiapine this morning and is now comfortably asleep and I understand that when he misses doses of this he can display agitation, which is complicating disposition. Prior to entering the room I discussed the case with [address] [place] [address] staff and business office specialist , Dr. Tello. We discussed a strategy of increasing the frequency of prn morphine and replacing quetiapine tablets with scheduled haldol in liquid form. This was then conveyed to the family, who agreed. I did not wake the patient up to assess his mental status under the circumstances. Exam Appearance: Well Developed/Nourished Hygiene: Normal Grooming: Disheveled Eye Contact: Poor Level of Consciousness: Obtunded Orientation: No Intact, No Orientated to Time, No Orientated to Place, No Orientated to Person Impulse Control: Tenuous Insight and Judgement: Impaired Impression - Impression Clinical Impression: 78 y.o. , white male with a history of Alzheimer's dementia admitted to the 4th floor from the [facility], where he had been combative. Inpatient DSM-V Dx: G30.9 Merits Inpatient Hospitalization: No BSU: Problem List - Patient Problems (1) Alzheimer's disease Current Visit: Yes Status: Acute Code(s): G30.9 - ALZHEIMER'S DISEASE, UNSPECIFIED; F02.80 - DEMENTIA IN OTH DISEASES CLASSD ELSWHR W/O BEHAVRL DISTURB SNOMED Code(s): 13109936 Comment: - As per above - continue supportive/comfort care Plan - Treatment Plan Treatment Plan: The patient is now on end of life care. Will discontinue quetiapine in favor of liquid Haldol 2mg PO BID. Psychiatry will continue to follow intermittently. Await hospice placement. Continued Medication Management: Start Medication Medications: Current Medications Amlodipine Besylate (Norvasc Tab*) 7.5 mg PO DAILY [facility] Last Admin: 02/25/19 09:19 Dose: Not Given Buspirone HCl (Buspar Tab*) 10 mg PO BID [facility] Last Admin: 02/25/19 09:06 Dose: 10 mg Citalopram Hydrobromide (Celexa Tab*) 40 mg PO DAILY [facility] Last Admin: 02/25/19 09:07 Dose: 40 mg Finasteride (Proscar Tab*) 5 mg PO DAILY [facility] Last Admin: 02/25/19 09:19 Dose: Not Given Galantamine Hydrobromide (Galantamine (Nf)) 8 mg PO BID [facility]; Protocol Last Admin: 02/25/19 09:20 Dose: Not Given Metoprolol Succinate (Toprol Xl Tab*) 25 mg PO DAILY [facility] Last Admin: 02/25/19 09:20 Dose: Not Given Morphine Sulfate (Morphine Oral Concentrate*) 10 mg PO Q4H PRN PRN Reason: PAIN - SEVERE Last Admin: 02/25/19 06:17 Dose: 10 mg Quetiapine Fumarate (Seroquel Tab*) 50 mg PO Q6H PRN PRN Reason: AGITATION Last Admin: 02/25/19 04:52 Dose: 50 mg Quetiapine Fumarate (Seroquel Tab*) 75 mg PO BID [facility] Last Admin: 02/25/19 09:06 Dose: 75 mg Tamsulosin HCl (Flomax Cap*) 0.8 mg PO DAILY [facility] Last Admin: 02/25/19 09:20 Dose: Not Given Ziprasidone (Geodon Im Inj*) 10 mg IM BID PRN PRN Reason: AGITATION - SEVERE
[2019-02-25] MEDS: Haloperidol LIQ* 10 MG/5 ML UDC PO SCH ×2 (11:42→21:36)
--- NOTE | 2019-02-25 17:25 | PN ---
Subjective Date of Service: 02/25/19 Interval History: Patient seen and examined. Remains non-verbal with me today, confused with periods of restlessness. Family History: Unchanged from Admission Social History: Unchanged from Admission Past Medical History: Unchanged from Admission Objective Active Medications: Haloperidol (Haldol Liq*) 2 mg PO BID LINDSAY Last Admin: 02/25/19 11:42 Dose: Not Given Morphine Sulfate (Morphine Oral Concentrate*) 10 mg PO Q2H PRN PRN Reason: PAIN - SEVERE Last Admin: 02/25/19 16:26 Dose: 10 mg Vital Signs - 8 hr 02/25/19 02/25/19 02/25/19 10:00 14:06 16:26 Pulse Rate 102 Respiratory 14 20 18 Rate Oxygen Devices in Use Now: None Appearance: lethargic Ears/Nose/Mouth/Throat: - - dry oral mucose Respiratory: Symmetrical Chest Expansion and Respiratory Effort, Clear to Auscultation Cardiovascular: RRR Abdominal: NL Sounds; No Tenderness; No Distention Extremities: No Edema Skin: No Rash or Ulcers Neurological: - - confused, lethargic with periods of restless/purposeless behavior Nutrition: - - no oral intake Result Diagrams: 02/19/19 05:39 02/19/19 05:39 Microbiology and Other Data: Microbiology 02/16/19 14:45 Nasal Screen MRSA (PCR) - Final Nasal Mrsa Not Detected Assess/Plan/Problems-Billing Assessment: Mr. Sainz is a 78 yo M with PMH of Alzheimer's, CAD, HTN, HLD, and BPH; who presented to the ED with AMS after receiving multiple sedating medications earlier in the day. Now on hospice. - Patient Problems (1) Altered mental status Code(s): R41.82 - ALTERED MENTAL STATUS, UNSPECIFIED SNOMED Code(s): 652032782 Comment: - 2/2 advanced (lewy body?) dementia - Quickly advancing AMS - Almost no PO intake - electing hospice and declines IVF or parenteral nutrition - Continue roxanol increased to Q2h for comfort and haldol for anxiety/ restless behavior, seems calm - VS otherwise stable (2) Alzheimer's disease Code(s): G30.9 - ALZHEIMER'S DISEASE, UNSPECIFIED; F02.80 - DEMENTIA IN OTH DISEASES CLASSD ELSWHR W/O BEHAVRL DISTURB SNOMED Code(s): 88235706 Comment: - As per above - continue supportive/comfort care (3) Acute urinary retention Code(s): R33.8 - OTHER RETENTION OF URINE SNOMED Code(s): 581436904 Comment: - Continue edward - Urine output scanty over last 24 hours, <19ml/hr and dark (4) DNR (do not resuscitate) Comment: Status and Disposition: Inpatient on hospice pending referral to the Residence or same day sign on in appropriate facility for Hospice. Per , [facility] accepting tomorrow.
[2019-02-26] MEDS: Morphine ORAL CONCENTRATE* 5 MG/0.25 ML ORAL.SYRIN PO PRN ×2 (00:34→10:02)
[2019-02-26] MEDS: Haloperidol LIQ* 10 MG/5 ML UDC PO SCH ×2 (06:09→07:31)
--- NOTE | 2019-02-26 13:06 | DS ---
CC: Dr. Izaguirre; Dr. Rebeca Tello; Dr. Laura Chen; Dr. Deonte Manzanares * DISCHARGE SUMMARY: DATE OF ADMISSION: 02/16/19 DATE OF DISCHARGE: 02/26/19 PRIMARY CARE PROVIDER: Dr. Izaguirre. MY ATTENDING FOR TODAY: Dr. Carly Peace * (DICTATED BY JASMINE ARVIZU NP) HOSPITAL COURSE: Please refer to admitting H and P on 02/16/19, but in short Mr. Sainz is a 78-year-old male patient with a history of Lewy body dementia who was residing at [facility] up until his admission to the hospital. Reportedly, the patient had been having some outburst behavior and falls and then was feeling some shoulder pain after he was found on the floor in his bedroom. EMS services had evaluated the patient and brought him to the emergency department and was discharged back to his residence. He fell again, at that time he was in another resident's room and was becoming very agitated and apparently very belligerent. He had been having some escalating aggressive behavior over the course of several days and was actually given Versed by EMS for his own protection and then brought back to the emergency department again. The patient remained aggressive during his transport and again in the emergency department received Benadryl, Haldol, and Ativan due to his increasing agitation and aggressive behavior also here in the hospital. He was admitted for his behavioral issues and aggression. He was also not responding in his usual manner. He was quite hallucinatory. After he had calmed down, he was sent back to [place]; however, he continued to have outburst behavior and hallucinate and then he was transported back to the emergency room for further management. At that time, he was admitted to the hospital for symptom management. He had a CT of the head that showed no acute intracranial massive bleeds or other pathology. He did not have a CVA. He was alternating between agitation and lethargic behavior, and at that point for the patient's safety he was again admitted. The patient was placed on a one to one for safety. He was receiving Versed, Ativan, Benadryl and Haldol; however, due to severe agitation and sedation, Psychiatry was consulted as well as Dr. Tello from palliative care. At that time, Dr. Manzanares from Psychiatry recommended quetiapine for severe agitation and intramuscular Geodon, these medications were continued to be titrated. The benzodiazepines were discontinued; however, over the course of several days the patient's mentation continued to decline. He also began having acute urinary retention and refusing food and oral hydration. The patient had a Freedman catheter placed because he was requiring straight catheterization, which also became very disruptive for the patient and because of his behavioral issues it was felt that a Freedman catheter would be more comfortable for the patient. He did have an acute retention and then a drop off in his urine production because he was refusing to eat or drink. During this time, his mentation also began to decline even further. This rapid progression led to several discussions between palliative care and the patient' s regarding goals of care. The did express that she did not want to try to give the patient IV hydration nor did she want to try to feed the patient by NG tube or other means of artificial nutrition. The patient then was not taking oral medications either. We were trying to crush his medications in applesauce and other things; however, the patient was refusing all oral intake at that time. The patient's urine output also began to drop significantly indicating some renal dysfunction and at that point the patient's agreed for hospice referral. On 02/21/19, I did have a discussion with the patient's Zan, at that time she elected for comfort measures only. Given the constellation of events and symptoms that her was experiencing and because of his general discomfort at that time, he also appeared to be having some pain and grimacing and at that time she agreed to comfort measures only. Between 02/21/19 and 02/24/19, the patient was also placed on Roxanol. Medications were further titrated again by Dr. Manzanares, he was placed on liquid Haldol for any behavioral disturbance alternating with the sublingual Roxanol every 2 hours. The patient has made some progress in terms of his level of comfort over the last 48 hours and does appear to be much more comfortable. Again, his p.o. intake has been negligible over the last 6 days. His urine output has dropped to approximately 15 mL/h over the last 48 hours and on 02/26/19 we received information that the patient has been offered bed at the hospice residence. He will be transferred to the residence today via ambulance transport. DISCHARGE DIAGNOSES: 1. Altered mental status secondary to Lewy body dementia. 2. Acute urinary retention. SECONDARY DIAGNOSES: 1. History of coronary artery disease. 2. History of hypertension. 3. History of benign prostatic hyperplasia. MEDICATIONS FOR DISCHARGE: Include: 1. Morphine sulfate oral concentrate 10 mg every 2 hours as needed for agitation and/or air hunger or severe pain. 2. Haldol liquid 2 mg orally 2 times a day as needed for agitation or discomfort, all other home medications have been discontinued. ACTIVITY: Bedrest. DIET: Comfort as tolerated. DISPOSITION: The patient is discharged to the hospice residence. He is in guarded condition. TIME SPENT: 60 minutes on discharge planning. JASMINE ARVIZU NP [id number]/CPS #: [id number]
== END 2019-02-26 10:10 | disposition hospice, home (50) | DRG 57 ==
LOC: ED 10:43 → MED 14:03 → OBSVTOIN 02-17 14:55
PROVIDERS: ADMIT Internal Medicine; ATTEND Internal Medicine
PROC: 0T9B70Z Drainage of Bladder with Drainage Device, Via Natural or Artificial Opening (ICD-10-PCS; principal; 2019-02-17)
DX: G31.83 Neurocognitive disorder with Lewy bodies (principal); G30.0 Alzheimer's disease with early onset; F02.80 Dementia in other diseases classified elsewhere, unspecified severity, without behavioral disturbance, psychotic disturbance, mood disturbance, and anxiety; J30.2 Other seasonal allergic rhinitis; I25.10 Atherosclerotic heart disease of native coronary artery without angina pectoris; I10 Essential (primary) hypertension; M19.012 Primary osteoarthritis, left shoulder; M19.011 Primary osteoarthritis, right shoulder; M46.90 Unspecified inflammatory spondylopathy, site unspecified; H26.9 Unspecified cataract; R79.89 Other specified abnormal findings of blood chemistry; Z66 Do not resuscitate; R33.8 Other retention of urine; N40.1 Benign prostatic hyperplasia with lower urinary tract symptoms; F41.9 Anxiety disorder, unspecified; F32.9 Major depressive disorder, single episode, unspecified; E78.5 Hyperlipidemia, unspecified; Z88.5 Allergy status to narcotic agent; Z95.5 Presence of coronary angioplasty implant and graft; Z87.891 Personal history of nicotine dependence; Z81.1 Family history of alcohol abuse and dependence
CPT/HCPCS: 36415; 70450; 71045; 80048; 80053; 81003; 81015; 82550; 84484; 85025; 85610; 86140; 87086; 87641; 93005; 96372; 99284; A9270-GY; G8978-GP-CM; G8979-GP-CI; G8987-GO-CN; G8988-GO-CL; J1200; J1630; J1644; J2060; J3486